=== PATIENT | female | born 1955 | race Asian ===

== ENCOUNTER 2017-04-01 15:49 | Inpatient (IN) | payer MEDICARE ==
[~2017-04-01 15:49] MED LIST: D50W (25GM) Syringe IV ONE
[2017-04-01] MEDS ORDERED: D50W (25GM) Syringe IV ONE ×2 (15:50→20:13)
[2017-04-01 17:02] LABS: Anion Gap 18 mmol/L; BUN/Creatinine Ratio 19; Blood Urea Nitrogen 13 mg/dL (7-17); Carbon Dioxide 26 mmol/L (22-30); Chloride 103.3 mmol/L (98-107); Glucose 107 mg/dL (65-100); Potassium 4.1 mmol/L (3.6-5.0); Sodium 143 mmol/L (137-145)
--- NOTE | 2017-04-01 17:08 | Emergency Department Report ---
HPI - General Chief Complaint: Altered Mental Status Time Seen by Provider: 04/01/17 16:44 - HPI HPI: Room 19 The patient is a 61-year-old female presenting with a chief complaint of altered mental status. Per EMS patient was sent from [facility] the right facial droop was noticed by staff. The patient had been given gabapentin, Cogentin, glipizide and Risperdal earlier this morning. Staff reported the patient appeared groggy when he attempted to awaken her the facial droop was noted and EMS was called. EMS found the patient hypoglycemic at 36 mg/dL subsequently administered one amp of D50 IV. The patient's blood sugar then increase to 186 mg/dL the patient's mental status did not improve. The patient is very sleepy/groggy during the interview and does not fully answer questions Location: Mental status Duration: [see above] Quality: [see above] Severity: [see above] Modifying factors: [see above] Context: [see above] Mode of transportation: [not driving] ED Past Medical Hx - Past Medical History Hx Diabetes: Yes Hx Psychiatric Treatment: Yes - Surgical History Past Surgical History?: No - Family History Family history: no significant - Social History Smoking Status: Unknown if ever smoked ED Review of Systems ROS: Stated complaint: AMS Other details as noted in HPI Comment: Unobtainable due to pts medical conditions Physical Exam - Physical Exam Vital Signs: Vital Signs 04/01/17 16:20 Temperature 97.5 F L Pulse Rate 86 Respiratory 22 Rate Blood Pressure 112/44 O2 Sat by Pulse 100 Oximetry Physical Exam: GENERAL: The patient is well-developed well-nourished []. [] HEENT: Normocephalic. Atraumatic. Extraocular motions are intact. Patient has moist mucous membranes. NECK: Supple. No meningitic signs are noted. There is no adenopathy noted. CHEST/LUNGS: Clear to auscultation. There is no respiratory distress noted. HEART/CARDIOVASCULAR: Regular. There is no tachycardia. There is no gallop rub or murmur. ABDOMEN: Abdomen is soft, nontender. Patient has normal bowel sounds. There is no abdominal distention. SKIN: There is no rash. There is no edema. There is no diaphoresis. NEURO: The patient is lethargic/groggy and awakens with tactile stimuli but promptly falls back asleep. The patient attempts to cooperate with neurological exam. There is no pronator drift. Bending Machine Operator equal bilaterally, extra ocular muscles intact patient moves both feet. The patient has no focal neurologic deficits. MUSCULOSKELETAL: There is no evidence of acute injury. ED Course Vital Signs 04/01/17 16:20 Temperature 97.5 F L Pulse Rate 86 Respiratory 22 Rate Blood Pressure 112/44 O2 Sat by Pulse 100 Oximetry ED Medical Decision Making - Lab Data Result diagrams: 04/01/17 16:25 04/01/17 16:25 Laboratory Tests 04/01/17 04/01/17 04/01/17 16:15 16:25 16:25 WBC 8.6 RBC 5.09 H Hgb 11.3 Hct 33.9 MCV 67 L MCH 22 L MCHC 33 RDW 16.1 H Plt Count 239 Add Manual Diff Complete Total Counted 100 Seg Neuts % (Manual) 65.0 Band Neutrophils % 0 Lymphocytes % (Manual) 27.0 Reactive Lymphs % (Man) 0 Monocytes % (Manual) 6.0 Eosinophils % (Manual) 2.0 Basophils % (Manual) 0 Metamyelocytes % 0 Myelocytes % 0 Promyelocytes % 0 Blast Cells % 0 Seg Neutrophils # Man 0.0 L Band Neutrophils # 0.0 Lymphocytes # (Manual) 0.0 L Abs React Lymphs (Man) 0.0 Monocytes # (Manual) 0.0 Eosinophils # (Manual) 0.0 Basophils # (Manual) 0.0 Metamyelocytes # 0.0 Myelocytes # 0.0 Promyelocytes # 0.0 Blast Cells # 0.0 Platelet Estimate Consistent w auto Microcytosis 1+ Target Cells 1+ Hem Pathologist Commnt No PT INR APTT Sodium 143 Potassium 4.1 Chloride 103.3 Carbon Dioxide 26 Anion Gap 18 BUN 13 Creatinine 0.7 Estimated GFR > 60 BUN/Creatinine Ratio 19 Glucose 107 H POC Glucose 186 H Calcium 9.0 Total Bilirubin Direct Bilirubin Indirect Bilirubin AST ALT Alkaline Phosphatase Ammonia Total Creatine Kinase CK-MB (CK-2) CK-MB (CK-2) Rel Index Troponin T Total Protein Albumin Albumin/Globulin Ratio Urine Color Urine Turbidity Urine pH Ur Specific [place] Urine Protein Urine Glucose (UA) Urine Ketones Urine Blood Urine Nitrite Urine Bilirubin Urine Urobilinogen Ur Leukocyte Esterase Urine WBC (Auto) Urine RBC (Auto) U Epithel Cells (Auto) Urine Bacteria (Auto) Urine Opiates Screen Urine Methadone Screen Ur Barbiturates Screen Ur Phencyclidine Scrn Ur Amphetamines Screen U Benzodiazepines Scrn Urine Cocaine Screen U Marijuana (THC) Screen Drugs of Abuse Note Plasma/Serum Alcohol 04/01/17 04/01/17 04/01/17 16:25 17:44 17:44 WBC RBC Hgb Hct MCV MCH MCHC RDW Plt Count Add Manual Diff Total Counted Seg Neuts % (Manual) Band Neutrophils % Lymphocytes % (Manual) Reactive Lymphs % (Man) Monocytes % (Manual) Eosinophils % (Manual) Basophils % (Manual) Metamyelocytes % Myelocytes % Promyelocytes % Blast Cells % Seg Neutrophils # Man Band Neutrophils # Lymphocytes # (Manual) Abs React Lymphs (Man) Monocytes # (Manual) Eosinophils # (Manual) Basophils # (Manual) Metamyelocytes # Myelocytes # Promyelocytes # Blast Cells # Platelet Estimate Microcytosis Target Cells Hem Pathologist Commnt PT INR APTT Sodium Potassium Chloride Carbon Dioxide Anion Gap BUN Creatinine Estimated GFR BUN/Creatinine Ratio Glucose POC Glucose Calcium Total Bilirubin 0.40 Direct Bilirubin < 0.2 Indirect Bilirubin 0.2 AST 20 ALT 14 Alkaline Phosphatase 55 Ammonia 20.0 L Total Creatine Kinase 54 CK-MB (CK-2) < 1.0 CK-MB (CK-2) Rel Index 1.8 Troponin T < 0.010 Total Protein 6.6 Albumin 4.0 Albumin/Globulin Ratio 1.5 Urine Color Urine Turbidity Urine pH Ur Specific [place] Urine Protein Urine Glucose (UA) Urine Ketones Urine Blood Urine Nitrite Urine Bilirubin Urine Urobilinogen Ur Leukocyte Esterase Urine WBC (Auto) Urine RBC (Auto) U Epithel Cells (Auto) Urine Bacteria (Auto) Urine Opiates Screen Urine Methadone Screen Ur Barbiturates Screen Ur Phencyclidine Scrn Ur Amphetamines Screen U Benzodiazepines Scrn Urine Cocaine Screen U Marijuana (THC) Screen Drugs of Abuse Note Plasma/Serum Alcohol < 0.01 04/01/17 04/01/17 04/01/17 17:57 Unknown Unknown WBC RBC Hgb Hct MCV MCH MCHC RDW Plt Count Add Manual Diff Total Counted Seg Neuts % (Manual) Band Neutrophils % Lymphocytes % (Manual) Reactive Lymphs % (Man) Monocytes % (Manual) Eosinophils % (Manual) Basophils % (Manual) Metamyelocytes % Myelocytes % Promyelocytes % Blast Cells % Seg Neutrophils # Man Band Neutrophils # Lymphocytes # (Manual) Abs React Lymphs (Man) Monocytes # (Manual) Eosinophils # (Manual) Basophils # (Manual) Metamyelocytes # Myelocytes # Promyelocytes # Blast Cells # Platelet Estimate Microcytosis Target Cells Hem Pathologist Commnt PT 13.3 INR 0.96 APTT 34.1 Sodium Potassium Chloride Carbon Dioxide Anion Gap BUN Creatinine Estimated GFR BUN/Creatinine Ratio Glucose POC Glucose Calcium Total Bilirubin Direct Bilirubin Indirect Bilirubin AST ALT Alkaline Phosphatase Ammonia Total Creatine Kinase CK-MB (CK-2) CK-MB (CK-2) Rel Index Troponin T Total Protein Albumin Albumin/Globulin Ratio Urine Color Yellow Urine Turbidity Clear Urine pH 6.0 Ur Specific [place] 1.007 Urine Protein <15 mg/dl Urine Glucose (UA) >=500 Urine Ketones Neg Urine Blood Neg Urine Nitrite Neg Urine Bilirubin Neg Urine Urobilinogen < 2.0 Ur Leukocyte Esterase Tr Urine WBC (Auto) 4.0 Urine RBC (Auto) 3.0 U Epithel Cells (Auto) < 1.0 Urine Bacteria (Auto) 1+ Urine Opiates Screen Presumptive negative Urine Methadone Screen Presumptive negative Ur Barbiturates Screen Presumptive negative Ur Phencyclidine Scrn Presumptive negative Ur Amphetamines Screen Presumptive negative U Benzodiazepines Scrn Presumptive negative Urine Cocaine Screen Presumptive negative U Marijuana (THC) Screen Presumptive negative Drugs of Abuse Note Disclamer Plasma/Serum Alcohol - Radiology Data Radiology results: report reviewed (CT head), image reviewed (CT head) CT head (read by radiologist) 6-atrophy ventricular prominence felt to be in proportion to the degree of atrophy. No CT evidence of acute cranial pathology. White matter changes likely related to chronic small vessel ischemic change. So centimeter areas of low attenuation in the basal ganglia felt to represent prominent perivascular spaces or lacunes - Differential Diagnosis ICH, overmedication, hepatic encephalopathy, Critical care attestation.: If time is entered above; I have spent that time in minutes in the direct care of this critically ill patient, excluding procedure time. ED Disposition Clinical Impression: Altered mental status Disposition: DC-[id number] OP ADMIT IP TO THIS HOSP Is pt being admited?: Yes Does the pt Need Aspirin: Yes Condition: Fair Referrals: PRIMARY CARE, [Primary Care Provider] - 3-5 Days Time of Disposition: 19:00 (hospitalist paged)
[2017-04-01 17:23] LABS: Urine Drugs of Abuse Note Disclamer
[2017-04-01 17:39] LABS: Bacteria,Urine 1+ /HPF (Negative); Bilirubin,Urine NEG (Negative); Blood,Urine NEG (Negative); Ketones,Urine NEG (Negative); Leukocyte Esterase,Urine TR (Negative); Nitrite,Urine NEG (Negative); Protein,Urine <15 mg/dL mg/dL (Negative); Urobilinogen,Urine < 2.0 mg/dL (<2.0)
[2017-04-01 17:53] LABS: Alanine Aminotransferase 14 units/L (7-56); Albumin/Globulin Ratio 1.5 %; Alkaline Phosphatase 55 units/L (35-129); Creatine Kinase 54 units/L (30-135); Total Protein 6.6 g/dL (6.3-8.2)
[2017-04-01 18:20] LABS: Bilirubin,Direct < 0.2 mg/dL (0-0.2); Bilirubin,Indirect 0.2 mg/dL
[2017-04-01 18:21] LABS: Creatine Kinase MB < 1.0 ng/mL (0.0-4.0)
[2017-04-01 18:34] LABS: INR 0.96 (0.87-1.13)
[2017-04-01 18:35] LABS: Partial Thromboplastin Time 34.1 Sec. (24.2-36.6)
--- NOTE | 2017-04-01 18:41 | Cat Scan Report ---
FINAL REPORT PROCEDURE: CT HEAD/BRAIN WO CON TECHNIQUE: Computerized tomography of the head was performed without contrast material. DLP 1792.70 mGy-cm. HISTORY: Altered mental status. COMPARISON: No prior studies are available for comparison. FINDINGS: Skull and scalp: Normal. Paranasal sinuses: Minimal left maxillary sinusitis. Ventricles and subarachnoid spaces: Ventricular prominence. Cerebrum: No evidence of hemorrhage, acute infarction or mass. Mild atrophy. Mild periventricular white matter low attenuation. Subcentimeter areas of low attenuation in the basal ganglia. Cerebellum and brainstem: No evidence of hemorrhage, acute infarction or mass. Vasculature: Mild atherosclerosis. Comments: None. IMPRESSION: Atrophy, ventricular prominence felt to be in proportion to the degree of atrophy. No CT evidence of acute intracranial pathology. White matter change likely related to chronic small vessel ischemic change. Subcentimeter areas of low attenuation in the basal ganglia felt to represent prominent perivascular spaces or lacunes. Consider MRI of the brain for further evaluation if there is continued clinical concern and if patient has no contraindication to MRI.
[2017-04-01 18:50] LABS: Basophils % (Manual) 0 % (0.0-1.8); Blastocytes % (Manual) 0 %
[2017-04-01 18:51] LABS: Microcytosis 1+; Platelet Estimate Consistent w Auto
[2017-04-01 18:52] LABS: Diff Status Complete; Target Cells 1+
[2017-04-01 18:56] LABS: Hematocrit 33.9 % (30.3-42.9); Hemoglobin 11.3 gm/dl (10.1-14.3); Mean Corpuscular Hemoglobin 22 pg (28-32); Mean Corpuscular Volume 67 fl (79-97); Red Blood Count 5.09 M/mm3 (3.65-5.03); White Blood Count 8.6 K/mm3 (4.5-11.0)
[2017-04-01 18:57] LABS: Mean Corpuscular HGB Conc 33 % (30-34); Platelet Count 239 K/mm3 (140-440); Red Cell Distribution Width 16.1 % (13.2-15.2)
[2017-04-01] MEDS ORDERED: ASPIRIN PR ONE ×2 (19:00→23:38)
[2017-04-01] MEDS ORDERED: ZOFRAN IV PRN (19:29)
[2017-04-01] MEDS ORDERED: SODIUM CHLORIDE FLUSH SYRINGE 10 ML IV PRN (19:29)
[2017-04-01] MEDS ORDERED: PHENERGAN PR PRN (19:29)
[2017-04-01] MEDS ORDERED: REGLAN PO PRN (19:29)
[2017-04-01] MEDS ORDERED: PROVENTIL IH PRN (19:29)
[2017-04-01] MEDS ORDERED: DULCOLAX PR PRN (19:29)
[2017-04-01] MEDS ORDERED: TYLENOL PO PRN (19:29)
[2017-04-01] MEDS ORDERED: MILK OF MAGNESIA PO PRN (19:29)
[2017-04-01] MEDS ORDERED: D5W (50 ML) IV ONE (20:10)
--- NOTE | 2017-04-01 20:12 | History and Physical Report ---
History of Present Illness Chief complaint: facial drooping, unresponsive History of present illness: 61 YO Female with DM, Psychosis admitted to [facility] under 1013 presents to ED for evaluation. Pt stuporous and unable to provide history due to mental status. Pt history taken from [facility] staff. As per staff, Patient was in her usual state of health today, and was given gabapentin, Cogentin, glipizide and Risperdal earlier this morning. Staff reports that the patient appeared groggy after getting her medication. Pt subsequently went to sleep and upon attempt to awaken her-the patient was found to have facial droop and slurred speech. EMS was notified and upon arrival patient was found to be hypoglycemic at 36 mg/dL. Pt was subsequently administered one amp of D50 with improvement in serum glucose to 186 mg/dL but without improvement in the patient's mental status. Pt seen and evaluated in ED and found to have right facial droop, and weakness. Past History Past Medical History: diabetes, other (Psychosis) Past Surgical History: No surgical history, Other (reviewed) Social history: single. denies: smoking, alcohol abuse, prescription drug abuse Family history: no significant family history (reviewed) Medications and Allergies Allergies Allergy/AdvReac Type Severity Reaction Status Date / Time No Known Allergies Allergy Verified 04/01/17 16:02 Active Meds: Active Medications Acetaminophen (Tylenol) 650 mg PO Q4H PRN PRN Reason: Pain, Mild (1-3) Albuterol (Proventil) 2.5 mg IH Q3HRT PRN PRN Reason: Shortness Of Breath Aspirin (Aspirin) 325 mg PO QDAY MERNA Bisacodyl (Dulcolax) 10 mg IA QDAY PRN PRN Reason: Constipation Magnesium Hydroxide (Milk Of Magnesia) 30 ml PO Q4H PRN PRN Reason: Constipation Metoclopramide HCl (Reglan) 10 mg PO Q6H PRN PRN Reason: Nausea And Vomiting Ondansetron HCl (Zofran) 4 mg IV Q8H PRN PRN Reason: N/V unrelieved by Reglan Promethazine HCl (Phenergan) 25 mg IA Q6H PRN PRN Reason: Nausea And Vomiting Simvastatin (Zocor) 20 mg PO QHS MERNA Sodium Chloride (Sodium Chloride Flush Syringe 10 Ml) 10 ml IV PRN PRN PRN Reason: LINE FLUSH Review of Systems ROS unobtainable: due to mental status Exam - Constitutional Vitals: Temp Pulse Resp BP Pulse Ox 97.5 F L 86 22 112/44 97 04/01/17 16:20 04/01/17 16:20 04/01/17 19:11 04/01/17 16:20 04/01/17 19:11 General appearance: Present: mild distress - EENT Eyes: Present: PERRL, scleral icterus - Neck Neck: Present: supple, normal ROM - Respiratory Respiratory: bilateral: diminished - Cardiovascular Heart Sounds: Present: S1 & S2. Absent: rub, click - Extremities Extremities: pulses symmetrical, No edema Peripheral Pulses: within normal limits - Abdominal General gastrointestinal: Present: soft, non-tender, non-distended, normal bowel sounds Female genitourinary: Present: normal - Integumentary Integumentary: Present: clear, warm, dry - Musculoskeletal Musculoskeletal: right sided weakness, generalized weakness - Psychiatric Psychiatric: no appropriate mood/affect, no intact judgment & insight, no memory intact - Neurologic Neurologic: no moves all extremities, no gait normal Results - Labs CBC & Chem 7: 04/01/17 16:25 04/01/17 16:25 Labs: Abnormal lab results 04/01/17 04/01/17 04/01/17 Range/Units 16:15 16:25 16:25 RBC 5.09 H (3.65-5.03) M/mm3 MCV 67 L (79-97) fl MCH 22 L (28-32) pg RDW 16.1 H (13.2-15.2) % Seg Neutrophils # Man 0.0 L (1.8-7.7) K/mm3 Lymphocytes # (Manual) 0.0 L (1.2-5.4) K/mm3 Glucose 107 H (65-100) mg/dL POC Glucose 186 H (70-105) Ammonia (25-60) umol/L 04/01/17 Range/Units 17:44 RBC (3.65-5.03) M/mm3 MCV (79-97) fl MCH (28-32) pg RDW (13.2-15.2) % Seg Neutrophils # Man (1.8-7.7) K/mm3 Lymphocytes # (Manual) (1.2-5.4) K/mm3 Glucose (65-100) mg/dL POC Glucose (70-105) Ammonia 20.0 L (25-60) umol/L Assessment and Plan - Patient Problems (1) CVA (cerebral vascular accident) Current Visit: Yes Status: Acute Qualifiers: CVA mechanism: C Precerebral and cerebral artery: P Laterality of affected vessel: L Plan to address problem: Stroke Protocol: CT Head, MRI/MRA Brain, PT/OT/ Speech Evaluation, antiplatelet therapy, Echo, Carotid doppler (2) Encephalopathy Current Visit: Yes Status: Acute Plan to address problem: CT Head, neuro checks, supportive care, aspiration precautions (3) Psychosis Current Visit: Yes Status: Acute Qualifiers: Psychosis type: P Schizoaffective disorder type: S Schizophrenia type: S Plan to address problem: [address], psych consulted. (4) Diabetes Current Visit: Yes Status: Acute Qualifiers: Diabetes mellitus type: D Diabetes mellitus complication status: D Diabetes mellitus complication detail: D Diabetic retinopathy severity: D Proliferative retinopathy type: P Diabetes mellitus macular edema: D Diabetes mellitus prison insulin use: D Laterality: L Chronic kidney disease stage: C Plan to address problem: ADA diet, insulin, accu check (5) DVT prophylaxis Current Visit: Yes Status: Acute
[2017-04-01] MEDS: ZOCOR PO SCH (23:38)
[2017-04-02] MEDS ORDERED: D5/0.45NS 1,000 ML IV ONE (01:02)
[2017-04-02] MEDS: D5/0.45NS 1,000 ML IV SCH ×2 (01:11→15:56)
[2017-04-02] MEDS ORDERED: D50W (25GM) Syringe IV ONE ×2 (01:36→01:51)
[2017-04-02] MEDS ORDERED: D50W (25GM) Vial IV ONE (09:31)
[2017-04-02] MEDS: ASPIRIN PO SCH (09:50)
--- NOTE | 2017-04-02 12:21 | Progress Note ---
Assessment and Plan Assessment and plan: Patient is 61-year-old woman from [facility] under 1013 with a past medical history of diabetes mellitus on glipizide, hypertension and mental disorder who presents with altered mental status and was found to have a blood glucose of 36. TTE read as left ventricular chamber size is normal, Global left ventricular wall motion and contractility are within normal limits. Global left ventricular systolic function is normal, est EF 55-60%, abnormal left ventricular diastolic filling, consistent with impair relaxation. CT head read as no acute intracranial pathology. -Altered mental status with acute metabolic encephalopathy due to hypoglycemia: Treat the hypoglycemia -Hypoglycemia on sulfa urea: Stop the glipizide, gave extra dose of dextrose, Accu-Chek stat, dextrose additive in IV fluids -Medical condition under 1013: Consult mental health -Uncontrolled type 2 diabetes mellitus with hypoglycemia: dextrose additive to ivf -History of hypertension but on hypotensive side mostly due to dehydration: Treat with IV fluids History Interval history: [place] intrepreter use via [employer] Patient was seen and examined. Follow-up on current diagnosis/ams which is still present. Overnight uneventful. Patient denies any chest pain, shortness breath, nausea/vomiting or severe headaches. Imaging, nursing note, chart, labs and old chart reviewed. Discussed with patient. Hospitalist Physical - Physical exam Narrative exam: GEN: thin, frial, NAD, AWAKE, ALERT, ORIENTATED x 2, missed year HEENT: NCAT, EOMI, PERRL, OP Clear NECK: supple, no adenopathy, no thyromegaly, no JVD CVS/HEART: RRR, NORMAL S1S2, NO JVD, pulses present bilaterally CHEST/LUNGS: CTA B, Symmetrical chest expansion, good air entry bilaterally GI/Abdomen: soft, NTND, good bowel sounds, no guarding or rebound /Bladder: no suprapubic tenderness, no CVA or paraspinal tenderness EXT/Skin: no c/c/e, no obvious rash MSK: spontaneous movement x 4 Neuro: CN 2-12 grossly intact, doesn't follow commands Psych: calm - Constitutional Vitals: Temp Pulse Resp BP Pulse Ox 97.5 F L 81 18 124/62 100 04/02/17 09:30 04/02/17 09:30 04/02/17 09:30 04/02/17 09:30 04/02/17 04:00 General appearance: Absent: mild distress Results - Labs CBC & Chem 7: 04/01/17 16:25 04/01/17 16:25 Labs: Laboratory Last Values WBC 8.6 K/mm3 (4.5-11.0) 04/01/17 16:25 RBC 5.09 M/mm3 (3.65-5.03) H 04/01/17 16:25 Hgb 11.3 gm/dl (10.1-14.3) 04/01/17 16:25 Hct 33.9 % (30.3-42.9) 04/01/17 16:25 MCV 67 fl (79-97) L 04/01/17 16:25 MCH 22 pg (28-32) L 04/01/17 16:25 MCHC 33 % (30-34) 04/01/17 16:25 RDW 16.1 % (13.2-15.2) H 04/01/17 16:25 Plt Count 239 K/mm3 (140-440) 04/01/17 16:25 Add Manual Diff Complete 04/01/17 16:25 Total Counted 100 04/01/17 16:25 Seg Neuts % (Manual) 65.0 % (40.0-70.0) 04/01/17 16:25 Band Neutrophils % 0 % 04/01/17 16:25 Lymphocytes % (Manual) 27.0 % (13.4-35.0) 04/01/17 16:25 Reactive Lymphs % (Man) 0 % 04/01/17 16:25 Monocytes % (Manual) 6.0 % (0.0-7.3) 04/01/17 16:25 Eosinophils % (Manual) 2.0 % (0.0-4.3) 04/01/17 16:25 Basophils % (Manual) 0 % (0.0-1.8) 04/01/17 16:25 Metamyelocytes % 0 % 04/01/17 16:25 Myelocytes % 0 % 04/01/17 16:25 Promyelocytes % 0 % 04/01/17 16:25 Blast Cells % 0 % 04/01/17 16:25 Seg Neutrophils # Man 0.0 K/mm3 (1.8-7.7) L 04/01/17 16:25 Band Neutrophils # 0.0 K/mm3 04/01/17 16:25 Lymphocytes # (Manual) 0.0 K/mm3 (1.2-5.4) L 04/01/17 16:25 Abs React Lymphs (Man) 0.0 K/mm3 04/01/17 16:25 Monocytes # (Manual) 0.0 K/mm3 (0.0-0.8) 04/01/17 16:25 Eosinophils # (Manual) 0.0 K/mm3 (0.0-0.4) 04/01/17 16:25 Basophils # (Manual) 0.0 K/mm3 (0.0-0.1) 04/01/17 16:25 Metamyelocytes # 0.0 K/mm3 04/01/17 16:25 Myelocytes # 0.0 K/mm3 04/01/17 16:25 Promyelocytes # 0.0 K/mm3 04/01/17 16:25 Blast Cells # 0.0 K/mm3 04/01/17 16:25 Platelet Estimate Consistent w auto 04/01/17 16:25 Microcytosis 1+ 04/01/17 16:25 Target Cells 1+ 04/01/17 16:25 Hem Pathologist Commnt No 04/01/17 16:25 PT 13.3 Sec. (12.2-14.9) 04/01/17 17:57 INR 0.96 (0.87-1.13) 04/01/17 17:57 APTT 34.1 Sec. (24.2-36.6) 04/01/17 17:57 Sodium 143 mmol/L (137-145) 04/01/17 16:25 Potassium 4.1 mmol/L (3.6-5.0) 04/01/17 16:25 Chloride 103.3 mmol/L (98-107) 04/01/17 16:25 Carbon Dioxide 26 mmol/L (22-30) 04/01/17 16:25 Anion Gap 18 mmol/L 04/01/17 16:25 BUN 13 mg/dL (7-17) 04/01/17 16:25 Creatinine 0.7 mg/dL (0.7-1.2) 04/01/17 16:25 Estimated GFR > 60 ml/min 04/01/17 16:25 BUN/Creatinine Ratio 19 % 04/01/17 16:25 Glucose 107 mg/dL (65-100) H 04/01/17 16:25 POC Glucose 66 (70-105) L 04/02/17 01:38 Calcium 9.0 mg/dL (8.4-10.2) 04/01/17 16:25 Total Bilirubin 0.40 mg/dL (0.1-1.2) 04/01/17 16:25 Direct Bilirubin < 0.2 mg/dL (0-0.2) 04/01/17 16:25 Indirect Bilirubin 0.2 mg/dL 04/01/17 16:25 AST 20 units/L (5-40) 04/01/17 16:25 ALT 14 units/L (7-56) 04/01/17 16:25 Alkaline Phosphatase 55 units/L (35-129) 04/01/17 16:25 Ammonia 20.0 umol/L (25-60) L 04/01/17 17:44 Total Creatine Kinase 54 units/L (30-135) 04/01/17 16:25 CK-MB (CK-2) < 1.0 ng/mL (0.0-4.0) 04/01/17 16:25 CK-MB (CK-2) Rel Index 1.8 (0-4) 04/01/17 16:25 Troponin T < 0.010 ng/mL (0.00-0.029) 04/01/17 16:25 Total Protein 6.6 g/dL (6.3-8.2) 04/01/17 16:25 Albumin 4.0 g/dL (3.9-5) 04/01/17 16:25 Albumin/Globulin Ratio 1.5 % 04/01/17 16:25 Triglycerides 102 mg/dL (2-149) 04/02/17 05:04 Cholesterol 132 mg/dL (50-199) 04/02/17 05:04 LDL Cholesterol Direct 60 mg/dL (50-130) 04/02/17 05:04 HDL Cholesterol 52 mg/dL (40-59) 04/02/17 05:04 Cholesterol/HDL Ratio 2.53 % 04/02/17 05:04 Urine Color Yellow (Yellow) 04/01/17 Unknown Urine Turbidity Clear (Clear) 04/01/17 Unknown Urine pH 6.0 (5.0-7.0) 04/01/17 Unknown Ur Specific [place] 1.007 (1.003-1.030) 04/01/17 Unknown Urine Protein <15 mg/dl mg/dL (Negative) 04/01/17 Unknown Urine Glucose (UA) >=500 mg/dL (Negative) 04/01/17 Unknown Urine Ketones Neg mg/dL (Negative) 04/01/17 Unknown Urine Blood Neg (Negative) 04/01/17 Unknown Urine Nitrite Neg (Negative) 04/01/17 Unknown Urine Bilirubin Neg (Negative) 04/01/17 Unknown Urine Urobilinogen < 2.0 mg/dL (<2.0) 04/01/17 Unknown Ur Leukocyte Esterase Tr (Negative) 04/01/17 Unknown Urine WBC (Auto) 4.0 /HPF (0.0-6.0) 04/01/17 Unknown Urine RBC (Auto) 3.0 /HPF (0.0-6.0) 04/01/17 Unknown U Epithel Cells (Auto) < 1.0 /HPF (0-13.0) 04/01/17 Unknown Urine Bacteria (Auto) 1+ /HPF (Negative) 04/01/17 Unknown Urine Opiates Screen Presumptive negative 04/01/17 Unknown Urine Methadone Screen Presumptive negative 04/01/17 Unknown Ur Barbiturates Screen Presumptive negative 04/01/17 Unknown Ur Phencyclidine Scrn Presumptive negative 04/01/17 Unknown Ur Amphetamines Screen Presumptive negative 04/01/17 Unknown U Benzodiazepines Scrn Presumptive negative 04/01/17 Unknown Urine Cocaine Screen Presumptive negative 04/01/17 Unknown U Marijuana (THC) Screen Presumptive negative 04/01/17 Unknown Drugs of Abuse Note Disclamer 04/01/17 Unknown Plasma/Serum Alcohol < 0.01 gm% (0-0.07) 04/01/17 17:44
--- NOTE | 2017-04-02 16:35 | Consultation ---
History of Present Illness - Reason for Consult Consult date: 04/02/17 Reason for consult: psychiatric consult - Chief Complaint Chief complaint: Language line used for language, [place]. She was unable to participate in the interview. She answered interview questions with one word. She was unable to contribute meaningful information to the interview. It is known she was at [place] and was determined to have facial droop and unresponsiveness. She was transferred to [facility] for medical evaluation and treatment. Hypoglycemia has been addressed and the record indicates she is undergoing a neurological work up. Medications and Allergies Allergies Allergy/AdvReac Type Severity Reaction Status Date / Time No Known Allergies Allergy Verified 04/01/17 16:02 Active Meds: Active Medications Acetaminophen (Tylenol) 650 mg PO Q4H PRN PRN Reason: Pain, Mild (1-3) Albuterol (Proventil) 2.5 mg IH Q3HRT PRN PRN Reason: Shortness Of Breath Aspirin (Aspirin) 325 mg PO QDAY [facility] Last Admin: 04/02/17 09:50 Dose: 325 mg Bisacodyl (Dulcolax) 10 mg NC QDAY PRN PRN Reason: Constipation Dextrose/Sodium Chloride (D5/0.45ns) 1,000 mls @ 75 mls/hr IV DIRECT [facility] Last Admin: 04/02/17 15:56 Dose: 75 mls/hr Magnesium Hydroxide (Milk Of Magnesia) 30 ml PO Q4H PRN PRN Reason: Constipation Metoclopramide HCl (Reglan) 10 mg PO Q6H PRN PRN Reason: Nausea And Vomiting Ondansetron HCl (Zofran) 4 mg IV Q8H PRN PRN Reason: N/V unrelieved by Reglan Promethazine HCl (Phenergan) 25 mg NC Q6H PRN PRN Reason: Nausea And Vomiting Simvastatin (Zocor) 20 mg PO QHS [facility] Last Admin: 04/01/17 23:38 Dose: Not Given Sodium Chloride (Sodium Chloride Flush Syringe 10 Ml) 10 ml IV PRN PRN PRN Reason: LINE FLUSH Past psychiatric history - Past Medical History Past Medical History: diabetes Mental Status Exam - Vital signs Last Vital Signs Temp 98.2 F 04/02/17 13:05 Pulse 73 04/02/17 13:05 Resp 18 04/02/17 13:05 BP 137/64 04/02/17 13:05 Pulse Ox 100 04/02/17 13:05 - Exam Narrative exam: unable to obtain mental status exam. Attempts were made to interview her in her [place] language of [place]. Orientation: person Results Result Diagrams: 04/01/17 16:25 04/01/17 16:25 Abnormal lab results 04/01/17 04/02/17 Range/Units 23:46 01:38 POC Glucose 66 L 66 L (70-105) All other labs normal. Assessment and Plan Assessment and plan: Impression: Encephalopathy Suicidality cannot be assessed at this time. Interview attempts were made with a [employer] historic interpreter via [employer]. The patient was attentive and held the phone but did not communicate effectively with the historic interpreter. She was observed to to be tremulous. Nurse informed. Recommendation: A reversable neurocognitive condition cannot be excluded. Continue to address potential neurological concerns per the medical team. Once medical conditions have resolved, we can evaluate for suicidal ideation or acute mental illness.
[2017-04-02] MEDS: ZOCOR PO SCH (21:55)
--- NOTE | 2017-04-02 22:52 | Magnetic Resonance Report ---
FINAL REPORT PROCEDURE: MR BRAIN WO CON TECHNIQUE: Magnetic resonance imaging of the brain was performed without contrast material. HISTORY: stroke COMPARISON: CT 04/01/2017 FINDINGS: Midline structures are unremarkable. No cerebellar tonsillar ectopia is noted. There is no restricted diffusion to suggest acute infarction. No abnormal extra-axial fluid collections are seen. There are diffuse involutional changes, with prominence of the ventricles and the sulci. No evidence of hydrocephalus. Minimal scattered white matter high T2 signal foci are present bilaterally, likely related to chronic microvascular ischemic changes. The globes and orbits are unremarkable. There is minimal left maxillary sinus mucosal thickening. IMPRESSION: No evidence of acute infarction. Minimal chronic ischemic changes.
--- NOTE | 2017-04-02 22:59 | Magnetic Resonance Report ---
FINAL REPORT PROCEDURE: MR MRA/MRV HEAD WO CON TECHNIQUE: Axial 3-D [id number] MR angiography of the [place] of [place] and brain was performed. The source images were reconstructed in various views using maximum intensity projection. HISTORY: Stroke symptoms COMPARISON: No prior studies are available for comparison. FINDINGS: Vertebral arteries: There is a dominant left vertebral artery. The distal right vertebral artery is small in caliber, likely a developmental variant. Basilar artery: Normal. Internal carotid arteries: Normal. Anterior cerebral arteries: Normal. Middle cerebral arteries: Normal. Posterior cerebral arteries: There appears to be a origin of the right posterior cerebral artery. Branch occlusions: None. Vascular malformations: None. IMPRESSION: No focal stenosis or occlusion identified
[2017-04-03] MEDS: D5/0.45NS 1,000 ML IV SCH (05:43)
[2017-04-03] MEDS: ASPIRIN PO SCH (10:05)
--- NOTE | 2017-04-03 14:24 | Progress Note ---
Assessment and Plan Assessment and plan: Patient is 61-year-old woman from [facility] under 1013 with a past medical history of diabetes mellitus on glipizide, hypertension and mental disorder who presents with altered mental status and was found to have a blood glucose of 36. TTE read as left ventricular chamber size is normal, Global left ventricular wall motion and contractility are within normal limits. Global left ventricular systolic function is normal, est EF 55-60%, abnormal left ventricular diastolic filling, consistent with impair relaxation. CT head read as no acute intracranial pathology. -Altered mental status with acute metabolic encephalopathy due to hypoglycemia: Treat the hypoglycemia -Hypoglycemia on sulfa urea: Stop the glipizide, gave extra dose of dextrose, Accu-Chek stat, dextrose additive in IV fluids -Medical condition under 1013: Consult mental health -Uncontrolled type 2 diabetes mellitus with hypoglycemia: dextrose additive to ivf -History of hypertension but on hypotensive side mostly due to dehydration: Treat with IV fluids D/c ivf with dextrose and monitor blood glucose today and if blood glucose says stable then d/c tomorrow back to [facility] History Interval history: [place] intrepreter use via [employer] used yesterday, not used today because she is not cooperative. Patient was seen and examined. Follow-up on current diagnosis/ams which is still present. Overnight uneventful. Imaging, nursing note, chart, labs and old chart reviewed. Discussed with patient. Sitter at bedside. She just mumbles Hospitalist Physical - Physical exam Narrative exam: GEN: thin, frial, NAD, AWAKE, ALERT, ORIENTATED x 2, missed year HEENT: NCAT, EOMI, PERRL, OP Clear NECK: supple, no adenopathy, no thyromegaly, no JVD CVS/HEART: RRR, NORMAL S1S2, NO JVD, pulses present bilaterally CHEST/LUNGS: CTA B, Symmetrical chest expansion, good air entry bilaterally GI/Abdomen: soft, NTND, good bowel sounds, no guarding or rebound /Bladder: no suprapubic tenderness, no CVA or paraspinal tenderness EXT/Skin: no c/c/e, no obvious rash MSK: spontaneous movement x 4 Neuro: CN 2-12 grossly intact, doesn't follow commands Psych: calm - Constitutional Vitals: Temp Pulse Resp BP Pulse Ox 99.2 F 74 20 115/66 100 10/16/17 12:01 04/03/17 12:01 04/03/17 12:01 04/03/17 12:01 04/03/17 12:01 General appearance: Absent: mild distress Results - Labs CBC & Chem 7: 04/01/17 16:25 04/01/17 16:25 Labs: Laboratory Last Values WBC 8.6 K/mm3 (4.5-11.0) 04/01/17 16:25 RBC 5.09 M/mm3 (3.65-5.03) H 04/01/17 16:25 Hgb 11.3 gm/dl (10.1-14.3) 04/01/17 16:25 Hct 33.9 % (30.3-42.9) 04/01/17 16:25 MCV 67 fl (79-97) L 04/01/17 16:25 MCH 22 pg (28-32) L 04/01/17 16:25 MCHC 33 % (30-34) 04/01/17 16:25 RDW 16.1 % (13.2-15.2) H 04/01/17 16:25 Plt Count 239 K/mm3 (140-440) 04/01/17 16:25 Add Manual Diff Complete 04/01/17 16:25 Total Counted 100 04/01/17 16:25 Seg Neuts % (Manual) 65.0 % (40.0-70.0) 04/01/17 16:25 Band Neutrophils % 0 % 04/01/17 16:25 Lymphocytes % (Manual) 27.0 % (13.4-35.0) 04/01/17 16:25 Reactive Lymphs % (Man) 0 % 04/01/17 16:25 Monocytes % (Manual) 6.0 % (0.0-7.3) 04/01/17 16:25 Eosinophils % (Manual) 2.0 % (0.0-4.3) 04/01/17 16:25 Basophils % (Manual) 0 % (0.0-1.8) 04/01/17 16:25 Metamyelocytes % 0 % 04/01/17 16:25 Myelocytes % 0 % 04/01/17 16:25 Promyelocytes % 0 % 04/01/17 16:25 Blast Cells % 0 % 04/01/17 16:25 Seg Neutrophils # Man 0.0 K/mm3 (1.8-7.7) L 04/01/17 16:25 Band Neutrophils # 0.0 K/mm3 04/01/17 16:25 Lymphocytes # (Manual) 0.0 K/mm3 (1.2-5.4) L 04/01/17 16:25 Abs React Lymphs (Man) 0.0 K/mm3 04/01/17 16:25 Monocytes # (Manual) 0.0 K/mm3 (0.0-0.8) 04/01/17 16:25 Eosinophils # (Manual) 0.0 K/mm3 (0.0-0.4) 04/01/17 16:25 Basophils # (Manual) 0.0 K/mm3 (0.0-0.1) 04/01/17 16:25 Metamyelocytes # 0.0 K/mm3 04/01/17 16:25 Myelocytes # 0.0 K/mm3 04/01/17 16:25 Promyelocytes # 0.0 K/mm3 04/01/17 16:25 Blast Cells # 0.0 K/mm3 04/01/17 16:25 Platelet Estimate Consistent w auto 04/01/17 16:25 Microcytosis 1+ 04/01/17 16:25 Target Cells 1+ 04/01/17 16:25 Hem Pathologist Commnt No 04/01/17 16:25 PT 13.3 Sec. (12.2-14.9) 04/01/17 17:57 INR 0.96 (0.87-1.13) 04/01/17 17:57 APTT 34.1 Sec. (24.2-36.6) 04/01/17 17:57 Sodium 143 mmol/L (137-145) 04/01/17 16:25 Potassium 4.1 mmol/L (3.6-5.0) 04/01/17 16:25 Chloride 103.3 mmol/L (98-107) 04/01/17 16:25 Carbon Dioxide 26 mmol/L (22-30) 04/01/17 16:25 Anion Gap 18 mmol/L 04/01/17 16:25 BUN 13 mg/dL (7-17) 04/01/17 16:25 Creatinine 0.7 mg/dL (0.7-1.2) 04/01/17 16:25 Estimated GFR > 60 ml/min 04/01/17 16:25 BUN/Creatinine Ratio 19 % 04/01/17 16:25 Glucose 107 mg/dL (65-100) H 04/01/17 16:25 POC Glucose 117 (70-105) H 04/03/17 12:00 Calcium 9.0 mg/dL (8.4-10.2) 04/01/17 16:25 Total Bilirubin 0.40 mg/dL (0.1-1.2) 04/01/17 16:25 Direct Bilirubin < 0.2 mg/dL (0-0.2) 04/01/17 16:25 Indirect Bilirubin 0.2 mg/dL 04/01/17 16:25 AST 20 units/L (5-40) 04/01/17 16:25 ALT 14 units/L (7-56) 04/01/17 16:25 Alkaline Phosphatase 55 units/L (35-129) 04/01/17 16:25 Ammonia 20.0 umol/L (25-60) L 04/01/17 17:44 Total Creatine Kinase 54 units/L (30-135) 04/01/17 16:25 CK-MB (CK-2) < 1.0 ng/mL (0.0-4.0) 04/01/17 16:25 CK-MB (CK-2) Rel Index 1.8 (0-4) 04/01/17 16:25 Troponin T < 0.010 ng/mL (0.00-0.029) 04/01/17 16:25 Total Protein 6.6 g/dL (6.3-8.2) 04/01/17 16:25 Albumin 4.0 g/dL (3.9-5) 04/01/17 16:25 Albumin/Globulin Ratio 1.5 % 04/01/17 16:25 Triglycerides 102 mg/dL (2-149) 04/02/17 05:04 Cholesterol 132 mg/dL (50-199) 04/02/17 05:04 LDL Cholesterol Direct 60 mg/dL (50-130) 04/02/17 05:04 HDL Cholesterol 52 mg/dL (40-59) 04/02/17 05:04 Cholesterol/HDL Ratio 2.53 % 04/02/17 05:04 Urine Color Yellow (Yellow) 04/01/17 Unknown Urine Turbidity Clear (Clear) 04/01/17 Unknown Urine pH 6.0 (5.0-7.0) 04/01/17 Unknown Ur Specific [place] 1.007 (1.003-1.030) 04/01/17 Unknown Urine Protein <15 mg/dl mg/dL (Negative) 04/01/17 Unknown Urine Glucose (UA) >=500 mg/dL (Negative) 04/01/17 Unknown Urine Ketones Neg mg/dL (Negative) 04/01/17 Unknown Urine Blood Neg (Negative) 04/01/17 Unknown Urine Nitrite Neg (Negative) 04/01/17 Unknown Urine Bilirubin Neg (Negative) 04/01/17 Unknown Urine Urobilinogen < 2.0 mg/dL (<2.0) 04/01/17 Unknown Ur Leukocyte Esterase Tr (Negative) 04/01/17 Unknown Urine WBC (Auto) 4.0 /HPF (0.0-6.0) 04/01/17 Unknown Urine RBC (Auto) 3.0 /HPF (0.0-6.0) 04/01/17 Unknown U Epithel Cells (Auto) < 1.0 /HPF (0-13.0) 04/01/17 Unknown Urine Bacteria (Auto) 1+ /HPF (Negative) 04/01/17 Unknown Urine Opiates Screen Presumptive negative 04/01/17 Unknown Urine Methadone Screen Presumptive negative 04/01/17 Unknown Ur Barbiturates Screen Presumptive negative 04/01/17 Unknown Ur Phencyclidine Scrn Presumptive negative 04/01/17 Unknown Ur Amphetamines Screen Presumptive negative 04/01/17 Unknown U Benzodiazepines Scrn Presumptive negative 04/01/17 Unknown Urine Cocaine Screen Presumptive negative 04/01/17 Unknown U Marijuana (THC) Screen Presumptive negative 04/01/17 Unknown Drugs of Abuse Note Disclamer 04/01/17 Unknown Plasma/Serum Alcohol < 0.01 gm% (0-0.07) 04/01/17 17:44
[2017-04-03] MEDS: ZOCOR PO SCH (21:18)
[2017-04-04] MEDS: ASPIRIN PO SCH (09:21)
--- NOTE | 2017-04-04 14:40 | Progress Note ---
Subjective - Reason for Consult Consult date: 04/04/17 Reason for consult: Psychiatry Follow-up - Chief Complaint Chief complaint: "Hello" The patient is a 61-year-old female presenting with a chief complaint of altered mental status. Per EMS patient was sent from [place] because of right facial drooping. Today patient was calm and cooperative during the assessment. Filling Hand line was used ([id number]). When asked about being suicidal, she stated , "Yes, I don't want to live anymore." Patient does not have a suicide plan. She would not confirm or deny depression when asked. Per the staff, patient completes her ADLs and eat 100% of her meals. She denies HI's and AVH's. Mental Status Exam - Vital signs Last Vital Signs Temp 97.9 F 04/04/17 11:49 Pulse 71 04/04/17 11:49 Resp 18 04/04/17 11:49 BP 124/74 04/04/17 11:49 Pulse Ox 98 04/04/17 11:49 - Exam Narrative exam: MSE: Appearance: calm, cooperative Behavior: regular eye contact Speech: regular rate and tone Mood: "okay" Affect: flat Thought Process: circumstantial Thought Content: denies HI's and AVH's Motor Activity: ambulatory Cognition: A/O x3 Insight: variable Judgment: variable Assessment and Plan Impression: Medical: Encephalopathy. Historical Dx: Possibly Schizophrenia. Today patient was calm and cooperative during the assessment. Filling Hand line was used ([id number]). Patient endorses SI's without a plan. Recommendation/Plan: Continue 1013. Patient can return back to [place] once medically clear. Gather more collateral to determine the indication for Clozaril.
--- NOTE | 2017-04-04 21:27 | Progress Note ---
Assessment and Plan Assessment and plan: 61 yo female with psychiatric disorder, brought from [facility] under 1013, with DM and HPL, who developed change in mental status and found to be hypoglycemic with a blood sugar of 36 1. Acute metabolic encephalopathy Secondary to hypoglycemia which now has resolved Other etiologies ruled out - infection, uremia, hepatic cephalopathy, drug use Mental status improving, likely back to baseline now 2. Diabetes with hypoglycemia Was on linagliptin/metformin at home; now discontinued Received D5W initially Now on regular po intake, no ivf BS in 100s; monitor closely for another 24 hours 3. Hyperlipidemia Continue statin 4. Psychiatric disorder Admitted at [facility] On 1013 Psychiatry following Plan to return there 5. DVT prophylaxis History Interval history: no issues overnight, calm this morning, cooperative, answering simple question Hospitalist Physical - Constitutional Vitals: Temp Pulse Resp BP Pulse Ox 97.9 F 71 16 119/68 99 04/04/17 20:02 04/04/17 19:59 04/04/17 20:02 04/04/17 19:59 04/04/17 19:59 General appearance: Present: no acute distress - EENT Eyes: Present: PERRL, EOM intact. Absent: scleral icterus, conjunctival injection - Neck Neck: Present: supple, normal ROM. Absent: masses or JVD - Respiratory Respiratory effort: normal Respiratory: bilateral: CTA, negative: rhonchi, wheezing - Cardiovascular Rhythm: regular Heart Sounds: Present: S1 & S2. Absent: systolic murmur - Extremities Extremities: no ischemia - Abdominal General gastrointestinal: soft, non-tender, non-distended, normal bowel sounds - Integumentary Integumentary: Present: warm, dry. Absent: jaundice, rash - Psychiatric Psychiatric: cooperative - Neurologic Neurologic: CNII-XII intact, no focal deficits Results - Labs CBC & Chem 7: 04/01/17 16:25 04/01/17 16:25 Labs: Laboratory Last Values WBC 8.6 K/mm3 (4.5-11.0) 04/01/17 16:25 RBC 5.09 M/mm3 (3.65-5.03) H 04/01/17 16:25 Hgb 11.3 gm/dl (10.1-14.3) 04/01/17 16:25 Hct 33.9 % (30.3-42.9) 04/01/17 16:25 MCV 67 fl (79-97) L 04/01/17 16:25 MCH 22 pg (28-32) L 04/01/17 16:25 MCHC 33 % (30-34) 04/01/17 16:25 RDW 16.1 % (13.2-15.2) H 04/01/17 16:25 Plt Count 239 K/mm3 (140-440) 04/01/17 16:25 Add Manual Diff Complete 04/01/17 16:25 Total Counted 100 04/01/17 16:25 Seg Neuts % (Manual) 65.0 % (40.0-70.0) 04/01/17 16:25 Band Neutrophils % 0 % 04/01/17 16:25 Lymphocytes % (Manual) 27.0 % (13.4-35.0) 04/01/17 16:25 Reactive Lymphs % (Man) 0 % 04/01/17 16:25 Monocytes % (Manual) 6.0 % (0.0-7.3) 04/01/17 16:25 Eosinophils % (Manual) 2.0 % (0.0-4.3) 04/01/17 16:25 Basophils % (Manual) 0 % (0.0-1.8) 04/01/17 16:25 Metamyelocytes % 0 % 04/01/17 16:25 Myelocytes % 0 % 04/01/17 16:25 Promyelocytes % 0 % 04/01/17 16:25 Blast Cells % 0 % 04/01/17 16:25 Seg Neutrophils # Man 0.0 K/mm3 (1.8-7.7) L 04/01/17 16:25 Band Neutrophils # 0.0 K/mm3 04/01/17 16:25 Lymphocytes # (Manual) 0.0 K/mm3 (1.2-5.4) L 04/01/17 16:25 Abs React Lymphs (Man) 0.0 K/mm3 04/01/17 16:25 Monocytes # (Manual) 0.0 K/mm3 (0.0-0.8) 04/01/17 16:25 Eosinophils # (Manual) 0.0 K/mm3 (0.0-0.4) 04/01/17 16:25 Basophils # (Manual) 0.0 K/mm3 (0.0-0.1) 04/01/17 16:25 Metamyelocytes # 0.0 K/mm3 04/01/17 16:25 Myelocytes # 0.0 K/mm3 04/01/17 16:25 Promyelocytes # 0.0 K/mm3 04/01/17 16:25 Blast Cells # 0.0 K/mm3 04/01/17 16:25 Platelet Estimate Consistent w auto 04/01/17 16:25 Microcytosis 1+ 04/01/17 16:25 Target Cells 1+ 04/01/17 16:25 Hem Pathologist Commnt No 04/01/17 16:25 PT 13.3 Sec. (12.2-14.9) 04/01/17 17:57 INR 0.96 (0.87-1.13) 04/01/17 17:57 APTT 34.1 Sec. (24.2-36.6) 04/01/17 17:57 Sodium 143 mmol/L (137-145) 04/01/17 16:25 Potassium 4.1 mmol/L (3.6-5.0) 04/01/17 16:25 Chloride 103.3 mmol/L (98-107) 04/01/17 16:25 Carbon Dioxide 26 mmol/L (22-30) 04/01/17 16:25 Anion Gap 18 mmol/L 04/01/17 16:25 BUN 13 mg/dL (7-17) 04/01/17 16:25 Creatinine 0.7 mg/dL (0.7-1.2) 04/01/17 16:25 Estimated GFR > 60 ml/min 04/01/17 16:25 BUN/Creatinine Ratio 19 % 04/01/17 16:25 Glucose 107 mg/dL (65-100) H 04/01/17 16:25 POC Glucose 104 (70-105) 04/04/17 16:13 Calcium 9.0 mg/dL (8.4-10.2) 04/01/17 16:25 Total Bilirubin 0.40 mg/dL (0.1-1.2) 04/01/17 16:25 Direct Bilirubin < 0.2 mg/dL (0-0.2) 04/01/17 16:25 Indirect Bilirubin 0.2 mg/dL 04/01/17 16:25 AST 20 units/L (5-40) 04/01/17 16:25 ALT 14 units/L (7-56) 04/01/17 16:25 Alkaline Phosphatase 55 units/L (35-129) 04/01/17 16:25 Ammonia 20.0 umol/L (25-60) L 04/01/17 17:44 Total Creatine Kinase 54 units/L (30-135) 04/01/17 16:25 CK-MB (CK-2) < 1.0 ng/mL (0.0-4.0) 04/01/17 16:25 CK-MB (CK-2) Rel Index 1.8 (0-4) 04/01/17 16:25 Troponin T < 0.010 ng/mL (0.00-0.029) 04/01/17 16:25 Total Protein 6.6 g/dL (6.3-8.2) 04/01/17 16:25 Albumin 4.0 g/dL (3.9-5) 04/01/17 16:25 Albumin/Globulin Ratio 1.5 % 04/01/17 16:25 Triglycerides 102 mg/dL (2-149) 04/02/17 05:04 Cholesterol 132 mg/dL (50-199) 04/02/17 05:04 LDL Cholesterol Direct 60 mg/dL (50-130) 04/02/17 05:04 HDL Cholesterol 52 mg/dL (40-59) 04/02/17 05:04 Cholesterol/HDL Ratio 2.53 % 04/02/17 05:04 Urine Color Yellow (Yellow) 04/01/17 Unknown Urine Turbidity Clear (Clear) 04/01/17 Unknown Urine pH 6.0 (5.0-7.0) 04/01/17 Unknown Ur Specific [place] 1.007 (1.003-1.030) 04/01/17 Unknown Urine Protein <15 mg/dl mg/dL (Negative) 04/01/17 Unknown Urine Glucose (UA) >=500 mg/dL (Negative) 04/01/17 Unknown Urine Ketones Neg mg/dL (Negative) 04/01/17 Unknown Urine Blood Neg (Negative) 04/01/17 Unknown Urine Nitrite Neg (Negative) 04/01/17 Unknown Urine Bilirubin Neg (Negative) 04/01/17 Unknown Urine Urobilinogen < 2.0 mg/dL (<2.0) 04/01/17 Unknown Ur Leukocyte Esterase Tr (Negative) 04/01/17 Unknown Urine WBC (Auto) 4.0 /HPF (0.0-6.0) 04/01/17 Unknown Urine RBC (Auto) 3.0 /HPF (0.0-6.0) 04/01/17 Unknown U Epithel Cells (Auto) < 1.0 /HPF (0-13.0) 04/01/17 Unknown Urine Bacteria (Auto) 1+ /HPF (Negative) 04/01/17 Unknown Urine Opiates Screen Presumptive negative 04/01/17 Unknown Urine Methadone Screen Presumptive negative 04/01/17 Unknown Ur Barbiturates Screen Presumptive negative 04/01/17 Unknown Ur Phencyclidine Scrn Presumptive negative 04/01/17 Unknown Ur Amphetamines Screen Presumptive negative 04/01/17 Unknown U Benzodiazepines Scrn Presumptive negative 04/01/17 Unknown Urine Cocaine Screen Presumptive negative 04/01/17 Unknown U Marijuana (THC) Screen Presumptive negative 04/01/17 Unknown Drugs of Abuse Note Disclamer 04/01/17 Unknown Plasma/Serum Alcohol < 0.01 gm% (0-0.07) 04/01/17 17:44
[2017-04-04] MEDS: ZOCOR PO SCH (21:39)
[2017-04-05] MEDS: ASPIRIN PO SCH (10:00)
--- NOTE | 2017-04-05 11:30 | Progress Note ---
Assessment and Plan Assessment and plan: 61 yo female with psychiatric disorder, brought from [facility] under 1013, with DM and HPL, who developed change in mental status and found to be hypoglycemic with a blood sugar of 36 1. Acute metabolic encephalopathy Secondary to hypoglycemia which now has resolved Other etiologies ruled out - infection, uremia, hepatic cephalopathy, drug use Mental status improving, likely back to baseline now 2. Diabetes with hypoglycemia Was on linagliptin/metformin at home; now discontinued Received D5W initially Now on regular po intake, no ivf BS consistently in 100-150s 3. Hyperlipidemia Continue statin 4. Psychiatric disorder Admitted at [facility] On 101 Psychiatry following Plan to return there 5. DVT prophylaxis 6. Dispo Medically cleared to return to psychiatric facility; oral antidiabetic medication discontinued History Interval history: doing well, no issues Hospitalist Physical - Constitutional Vitals: Temp Pulse Resp BP Pulse Ox 98.4 F 79 20 145/85 99 04/05/17 08:54 04/05/17 08:54 04/05/17 08:54 04/05/17 08:54 04/05/17 08:54 General appearance: Present: no acute distress - EENT Eyes: Present: PERRL, EOM intact - Neck Neck: Present: supple, normal ROM. Absent: masses or JVD - Respiratory Respiratory effort: normal Respiratory: bilateral: CTA, negative: rhonchi, wheezing - Cardiovascular Rhythm: regular Heart Sounds: Present: S1 & S2. Absent: systolic murmur - Extremities Extremities: no ischemia - Abdominal General gastrointestinal: soft, non-tender, non-distended, normal bowel sounds - Neurologic Neurologic: CNII-XII intact, no focal deficits Results - Labs CBC & Chem 7: 04/01/17 16:25 04/01/17 16:25 Labs: Laboratory Last Values WBC 8.6 K/mm3 (4.5-11.0) 04/01/17 16:25 RBC 5.09 M/mm3 (3.65-5.03) H 04/01/17 16:25 Hgb 11.3 gm/dl (10.1-14.3) 04/01/17 16:25 Hct 33.9 % (30.3-42.9) 04/01/17 16:25 MCV 67 fl (79-97) L 04/01/17 16:25 MCH 22 pg (28-32) L 04/01/17 16:25 MCHC 33 % (30-34) 04/01/17 16:25 RDW 16.1 % (13.2-15.2) H 04/01/17 16:25 Plt Count 239 K/mm3 (140-440) 04/01/17 16:25 Add Manual Diff Complete 04/01/17 16:25 Total Counted 100 04/01/17 16:25 Seg Neuts % (Manual) 65.0 % (40.0-70.0) 04/01/17 16:25 Band Neutrophils % 0 % 04/01/17 16:25 Lymphocytes % (Manual) 27.0 % (13.4-35.0) 04/01/17 16:25 Reactive Lymphs % (Man) 0 % 04/01/17 16:25 Monocytes % (Manual) 6.0 % (0.0-7.3) 04/01/17 16:25 Eosinophils % (Manual) 2.0 % (0.0-4.3) 04/01/17 16:25 Basophils % (Manual) 0 % (0.0-1.8) 04/01/17 16:25 Metamyelocytes % 0 % 04/01/17 16:25 Myelocytes % 0 % 04/01/17 16:25 Promyelocytes % 0 % 04/01/17 16:25 Blast Cells % 0 % 04/01/17 16:25 Seg Neutrophils # Man 0.0 K/mm3 (1.8-7.7) L 04/01/17 16:25 Band Neutrophils # 0.0 K/mm3 04/01/17 16:25 Lymphocytes # (Manual) 0.0 K/mm3 (1.2-5.4) L 04/01/17 16:25 Abs React Lymphs (Man) 0.0 K/mm3 04/01/17 16:25 Monocytes # (Manual) 0.0 K/mm3 (0.0-0.8) 04/01/17 16:25 Eosinophils # (Manual) 0.0 K/mm3 (0.0-0.4) 04/01/17 16:25 Basophils # (Manual) 0.0 K/mm3 (0.0-0.1) 04/01/17 16:25 Metamyelocytes # 0.0 K/mm3 04/01/17 16:25 Myelocytes # 0.0 K/mm3 04/01/17 16:25 Promyelocytes # 0.0 K/mm3 04/01/17 16:25 Blast Cells # 0.0 K/mm3 04/01/17 16:25 Platelet Estimate Consistent w auto 04/01/17 16:25 Microcytosis 1+ 04/01/17 16:25 Target Cells 1+ 04/01/17 16:25 Hem Pathologist Commnt No 04/01/17 16:25 PT 13.3 Sec. (12.2-14.9) 04/01/17 17:57 INR 0.96 (0.87-1.13) 04/01/17 17:57 APTT 34.1 Sec. (24.2-36.6) 04/01/17 17:57 Sodium 143 mmol/L (137-145) 04/01/17 16:25 Potassium 4.1 mmol/L (3.6-5.0) 04/01/17 16:25 Chloride 103.3 mmol/L (98-107) 04/01/17 16:25 Carbon Dioxide 26 mmol/L (22-30) 04/01/17 16:25 Anion Gap 18 mmol/L 04/01/17 16:25 BUN 13 mg/dL (7-17) 04/01/17 16:25 Creatinine 0.7 mg/dL (0.7-1.2) 04/01/17 16:25 Estimated GFR > 60 ml/min 04/01/17 16:25 BUN/Creatinine Ratio 19 % 04/01/17 16:25 Glucose 107 mg/dL (65-100) H 04/01/17 16:25 POC Glucose 117 (70-105) H 04/04/17 21:54 Calcium 9.0 mg/dL (8.4-10.2) 04/01/17 16:25 Total Bilirubin 0.40 mg/dL (0.1-1.2) 04/01/17 16:25 Direct Bilirubin < 0.2 mg/dL (0-0.2) 04/01/17 16:25 Indirect Bilirubin 0.2 mg/dL 04/01/17 16:25 AST 20 units/L (5-40) 04/01/17 16:25 ALT 14 units/L (7-56) 04/01/17 16:25 Alkaline Phosphatase 55 units/L (35-129) 04/01/17 16:25 Ammonia 20.0 umol/L (25-60) L 04/01/17 17:44 Total Creatine Kinase 54 units/L (30-135) 04/01/17 16:25 CK-MB (CK-2) < 1.0 ng/mL (0.0-4.0) 04/01/17 16:25 CK-MB (CK-2) Rel Index 1.8 (0-4) 04/01/17 16:25 Troponin T < 0.010 ng/mL (0.00-0.029) 04/01/17 16:25 Total Protein 6.6 g/dL (6.3-8.2) 04/01/17 16:25 Albumin 4.0 g/dL (3.9-5) 04/01/17 16:25 Albumin/Globulin Ratio 1.5 % 04/01/17 16:25 Triglycerides 102 mg/dL (2-149) 04/02/17 05:04 Cholesterol 132 mg/dL (50-199) 04/02/17 05:04 LDL Cholesterol Direct 60 mg/dL (50-130) 04/02/17 05:04 HDL Cholesterol 52 mg/dL (40-59) 04/02/17 05:04 Cholesterol/HDL Ratio 2.53 % 04/02/17 05:04 Urine Color Yellow (Yellow) 04/01/17 Unknown Urine Turbidity Clear (Clear) 04/01/17 Unknown Urine pH 6.0 (5.0-7.0) 04/01/17 Unknown Ur Specific [place] 1.007 (1.003-1.030) 04/01/17 Unknown Urine Protein <15 mg/dl mg/dL (Negative) 04/01/17 Unknown Urine Glucose (UA) >=500 mg/dL (Negative) 04/01/17 Unknown Urine Ketones Neg mg/dL (Negative) 04/01/17 Unknown Urine Blood Neg (Negative) 04/01/17 Unknown Urine Nitrite Neg (Negative) 04/01/17 Unknown Urine Bilirubin Neg (Negative) 04/01/17 Unknown Urine Urobilinogen < 2.0 mg/dL (<2.0) 04/01/17 Unknown Ur Leukocyte Esterase Tr (Negative) 04/01/17 Unknown Urine WBC (Auto) 4.0 /HPF (0.0-6.0) 04/01/17 Unknown Urine RBC (Auto) 3.0 /HPF (0.0-6.0) 04/01/17 Unknown U Epithel Cells (Auto) < 1.0 /HPF (0-13.0) 04/01/17 Unknown Urine Bacteria (Auto) 1+ /HPF (Negative) 04/01/17 Unknown Urine Opiates Screen Presumptive negative 04/01/17 Unknown Urine Methadone Screen Presumptive negative 04/01/17 Unknown Ur Barbiturates Screen Presumptive negative 04/01/17 Unknown Ur Phencyclidine Scrn Presumptive negative 04/01/17 Unknown Ur Amphetamines Screen Presumptive negative 04/01/17 Unknown U Benzodiazepines Scrn Presumptive negative 04/01/17 Unknown Urine Cocaine Screen Presumptive negative 04/01/17 Unknown U Marijuana (THC) Screen Presumptive negative 04/01/17 Unknown Drugs of Abuse Note Disclamer 04/01/17 Unknown Plasma/Serum Alcohol < 0.01 gm% (0-0.07) 04/01/17 17:44
--- NOTE | 2017-04-05 13:22 | Progress Note ---
Subjective - Reason for Consult Reason for consult: AMS - Chief Complaint Chief complaint: . Mental Status Exam - Vital signs Last Vital Signs Temp 98.9 F 04/05/17 12:17 Pulse 70 04/05/17 12:17 Resp 20 04/05/17 12:17 BP 133/69 04/05/17 12:17 Pulse Ox 100 04/05/17 12:17 Assessment and Plan I attempted to interview the patient today, but the interview was limited due to the language line being unavailable. Per review of medical record, patient had hypoglycemia which led to the altered mental status, it appears that this is now resolved. At the current time, I will inform the case management rn to refer her to [facility] that the patient's altered mental status has resolved.
[2017-04-05] MEDS: ZOCOR PO SCH (21:19)
--- NOTE | 2017-04-06 09:18 | Discharge Summary ---
Providers - Providers Date of Admission: 04/01/17 19:29 Date of discharge: 04/06/17 Attending physician: DOMINIQUE CHANG Consults: Psychiatry Primary care physician: CLAUDIA MORILLO MD Hospitalization Reason for admission: change in mental status Condition: Stable Pertinent studies: CT head Brain MRI/A Carotid Doppler Hospital course: 61 yo female with psychiatric disorder, brought from [facility] under 1013, with diabetes and hyperlipidemia, who developed change in mental status and found to be hypoglycemic with a blood sugar of 36. Received D5 water initially, then discontinued, transitioned to a regular diet and blood sugars have been within normal limits. Her oral antidiabetic, linagliptin/ metformin, has been discontinued as BS in low 100s on no medication. Other etiologies of acute encephalopathy ruled out (infection, uremia, hepatic encephalopathy). She is medically cleared to be transferred back to psychiatric facility. Discharge diagnoses: 1. Acute metabolic encephalopathy- resolved 2. Diabetes with hypoglycemia 3. Hyperlipidemia 4. Psychiatric disorder - on 1013 5. Dispo Return to psychiatric facility Disposition: [id number]/[id number] PSY HOSP/PSY UNIT Time spent for discharge: 35 min Core Measure Documentation - Palliative Care Palliative Care/ Comfort Measures: Not Applicable - Core Measures Any of the following diagnoses?: none Exam - Physical Exam Narrative exam: Seen and examined: - Constitutional Vitals: Temp Pulse Resp BP Pulse Ox 98.3 F 70 18 114/66 99 04/06/17 08:08 04/06/17 08:08 04/06/17 08:08 04/06/17 08:08 04/06/17 08:08 General appearance: Present: no acute distress - EENT Eyes: Present: PERRL, EOM intact - Neck Neck: Present: supple, normal ROM. Absent: masses or JVD - Respiratory Respiratory effort: normal Respiratory: bilateral: CTA, negative: rhonchi, wheezing - Cardiovascular Rhythm: regular Heart Sounds: Present: S1 & S2. Absent: systolic murmur - Extremities Extremities: no ischemia - Abdominal General gastrointestinal: Present: soft, non-tender, non-distended, normal bowel sounds - Psychiatric Psychiatric: other (calm) - Neurologic Neurologic: no focal deficits Plan Activity: advance as tolerated, fall precautions Diet: low cholesterol, low salt, diabetic Additional Instructions: Return to psychiatric facility under psychiatrist care Follow up with: PRIMARY CAREMD [Primary Care Provider] - 3-5 Days
[2017-04-06] MEDS: ASPIRIN PO SCH (10:37)
[2017-04-06] MEDS: ZOCOR PO SCH (21:26)
[2017-04-07] MEDS: ASPIRIN PO SCH (09:20)
--- NOTE | 2017-04-07 19:28 | Progress Note ---
Assessment and Plan Assessment and plan: 61 yo female with psychiatric disorder, brought from [facility] under 1013, with DM and HPL, who developed change in mental status and found to be hypoglycemic with a blood sugar of 36 1. Acute metabolic encephalopathy Secondary to hypoglycemia which now has resolved Other etiologies ruled out - infection, uremia, hepatic cephalopathy, drug use Mental status improved, likely back to baseline now 2. Diabetes with hypoglycemia Was on linagliptin/metformin at home; now discontinued Received D5W initially Now on regular po intake, no ivf BS consistently in 100-150s 3. Hyperlipidemia Continue statin 4. Psychiatric disorder Admitted at [facility] On 101 Psychiatry following Plan to return there 5. DVT prophylaxis 6. Dispo Medically cleared to return to psychiatric facility; oral antidiabetic medication discontinued History Interval history: doing well, no issues, awaiting transfer to inpatient psych Hospitalist Physical - Constitutional Vitals: Temp Pulse Resp BP Pulse Ox 98.1 F 75 18 110/61 97 04/07/17 16:45 04/07/17 16:45 04/07/17 16:45 04/07/17 16:45 04/07/17 08:02 General appearance: Present: no acute distress - EENT Eyes: Present: PERRL, EOM intact - Neck Neck: Present: supple, normal ROM. Absent: masses or JVD - Respiratory Respiratory effort: normal Respiratory: bilateral: CTA, negative: rhonchi, wheezing - Cardiovascular Rhythm: regular Heart Sounds: Present: S1 & S2. Absent: systolic murmur - Extremities Extremities: no ischemia - Abdominal General gastrointestinal: soft, non-tender, non-distended, normal bowel sounds - Psychiatric Psychiatric: no intact judgment & insight, no memory intact - Neurologic Neurologic: CNII-XII intact, no focal deficits Results - Labs CBC & Chem 7: 04/01/17 16:25 04/01/17 16:25 Labs: Laboratory Last Values WBC 8.6 K/mm3 (4.5-11.0) 04/01/17 16:25 RBC 5.09 M/mm3 (3.65-5.03) H 04/01/17 16:25 Hgb 11.3 gm/dl (10.1-14.3) 04/01/17 16:25 Hct 33.9 % (30.3-42.9) 04/01/17 16:25 MCV 67 fl (79-97) L 04/01/17 16:25 MCH 22 pg (28-32) L 04/01/17 16:25 MCHC 33 % (30-34) 04/01/17 16:25 RDW 16.1 % (13.2-15.2) H 04/01/17 16:25 Plt Count 239 K/mm3 (140-440) 04/01/17 16:25 Add Manual Diff Complete 04/01/17 16:25 Total Counted 100 04/01/17 16:25 Seg Neuts % (Manual) 65.0 % (40.0-70.0) 04/01/17 16:25 Band Neutrophils % 0 % 04/01/17 16:25 Lymphocytes % (Manual) 27.0 % (13.4-35.0) 04/01/17 16:25 Reactive Lymphs % (Man) 0 % 04/01/17 16:25 Monocytes % (Manual) 6.0 % (0.0-7.3) 04/01/17 16:25 Eosinophils % (Manual) 2.0 % (0.0-4.3) 04/01/17 16:25 Basophils % (Manual) 0 % (0.0-1.8) 04/01/17 16:25 Metamyelocytes % 0 % 04/01/17 16:25 Myelocytes % 0 % 04/01/17 16:25 Promyelocytes % 0 % 04/01/17 16:25 Blast Cells % 0 % 04/01/17 16:25 Seg Neutrophils # Man 0.0 K/mm3 (1.8-7.7) L 04/01/17 16:25 Band Neutrophils # 0.0 K/mm3 04/01/17 16:25 Lymphocytes # (Manual) 0.0 K/mm3 (1.2-5.4) L 04/01/17 16:25 Abs React Lymphs (Man) 0.0 K/mm3 04/01/17 16:25 Monocytes # (Manual) 0.0 K/mm3 (0.0-0.8) 04/01/17 16:25 Eosinophils # (Manual) 0.0 K/mm3 (0.0-0.4) 04/01/17 16:25 Basophils # (Manual) 0.0 K/mm3 (0.0-0.1) 04/01/17 16:25 Metamyelocytes # 0.0 K/mm3 04/01/17 16:25 Myelocytes # 0.0 K/mm3 04/01/17 16:25 Promyelocytes # 0.0 K/mm3 04/01/17 16:25 Blast Cells # 0.0 K/mm3 04/01/17 16:25 Platelet Estimate Consistent w auto 04/01/17 16:25 Microcytosis 1+ 04/01/17 16:25 Target Cells 1+ 04/01/17 16:25 Hem Pathologist Commnt No 04/01/17 16:25 PT 13.3 Sec. (12.2-14.9) 04/01/17 17:57 INR 0.96 (0.87-1.13) 04/01/17 17:57 APTT 34.1 Sec. (24.2-36.6) 04/01/17 17:57 Sodium 143 mmol/L (137-145) 04/01/17 16:25 Potassium 4.1 mmol/L (3.6-5.0) 04/01/17 16:25 Chloride 103.3 mmol/L (98-107) 04/01/17 16:25 Carbon Dioxide 26 mmol/L (22-30) 04/01/17 16:25 Anion Gap 18 mmol/L 04/01/17 16:25 BUN 13 mg/dL (7-17) 04/01/17 16:25 Creatinine 0.7 mg/dL (0.7-1.2) 04/01/17 16:25 Estimated GFR > 60 ml/min 04/01/17 16:25 BUN/Creatinine Ratio 19 % 04/01/17 16:25 Glucose 107 mg/dL (65-100) H 04/01/17 16:25 POC Glucose 141 (70-105) H 04/05/17 17:12 Calcium 9.0 mg/dL (8.4-10.2) 04/01/17 16:25 Total Bilirubin 0.40 mg/dL (0.1-1.2) 04/01/17 16:25 Direct Bilirubin < 0.2 mg/dL (0-0.2) 04/01/17 16:25 Indirect Bilirubin 0.2 mg/dL 04/01/17 16:25 AST 20 units/L (5-40) 04/01/17 16:25 ALT 14 units/L (7-56) 04/01/17 16:25 Alkaline Phosphatase 55 units/L (35-129) 04/01/17 16:25 Ammonia 20.0 umol/L (25-60) L 04/01/17 17:44 Total Creatine Kinase 54 units/L (30-135) 04/01/17 16:25 CK-MB (CK-2) < 1.0 ng/mL (0.0-4.0) 04/01/17 16:25 CK-MB (CK-2) Rel Index 1.8 (0-4) 04/01/17 16:25 Troponin T < 0.010 ng/mL (0.00-0.029) 04/01/17 16:25 Total Protein 6.6 g/dL (6.3-8.2) 04/01/17 16:25 Albumin 4.0 g/dL (3.9-5) 04/01/17 16:25 Albumin/Globulin Ratio 1.5 % 04/01/17 16:25 Triglycerides 102 mg/dL (2-149) 04/02/17 05:04 Cholesterol 132 mg/dL (50-199) 04/02/17 05:04 LDL Cholesterol Direct 60 mg/dL (50-130) 04/02/17 05:04 HDL Cholesterol 52 mg/dL (40-59) 04/02/17 05:04 Cholesterol/HDL Ratio 2.53 % 04/02/17 05:04 Urine Color Yellow (Yellow) 04/01/17 Unknown Urine Turbidity Clear (Clear) 04/01/17 Unknown Urine pH 6.0 (5.0-7.0) 04/01/17 Unknown Ur Specific [place] 1.007 (1.003-1.030) 04/01/17 Unknown Urine Protein <15 mg/dl mg/dL (Negative) 04/01/17 Unknown Urine Glucose (UA) >=500 mg/dL (Negative) 04/01/17 Unknown Urine Ketones Neg mg/dL (Negative) 04/01/17 Unknown Urine Blood Neg (Negative) 04/01/17 Unknown Urine Nitrite Neg (Negative) 04/01/17 Unknown Urine Bilirubin Neg (Negative) 04/01/17 Unknown Urine Urobilinogen < 2.0 mg/dL (<2.0) 04/01/17 Unknown Ur Leukocyte Esterase Tr (Negative) 04/01/17 Unknown Urine WBC (Auto) 4.0 /HPF (0.0-6.0) 04/01/17 Unknown Urine RBC (Auto) 3.0 /HPF (0.0-6.0) 04/01/17 Unknown U Epithel Cells (Auto) < 1.0 /HPF (0-13.0) 04/01/17 Unknown Urine Bacteria (Auto) 1+ /HPF (Negative) 04/01/17 Unknown Urine Opiates Screen Presumptive negative 04/01/17 Unknown Urine Methadone Screen Presumptive negative 04/01/17 Unknown Ur Barbiturates Screen Presumptive negative 04/01/17 Unknown Ur Phencyclidine Scrn Presumptive negative 04/01/17 Unknown Ur Amphetamines Screen Presumptive negative 04/01/17 Unknown U Benzodiazepines Scrn Presumptive negative 04/01/17 Unknown Urine Cocaine Screen Presumptive negative 04/01/17 Unknown U Marijuana (THC) Screen Presumptive negative 04/01/17 Unknown Drugs of Abuse Note Disclamer 04/01/17 Unknown Plasma/Serum Alcohol < 0.01 gm% (0-0.07) 04/01/17 17:44
[2017-04-07] MEDS: ZOCOR PO SCH (22:11)
[2017-04-08] MEDS: ASPIRIN PO SCH (10:29)
--- NOTE | 2017-04-08 14:30 | Progress Note ---
Assessment and Plan Assessment and plan: 61 yo female with psychiatric disorder, brought from [facility] under 1013, with DM and HPL, who developed change in mental status and found to be hypoglycemic with a blood sugar of 36 1. Acute metabolic encephalopathy Secondary to hypoglycemia which now has resolved Other etiologies ruled out - infection, uremia, hepatic cephalopathy, drug use Mental status improved, likely back to baseline now 2. Diabetes with hypoglycemia Was on linagliptin/metformin at home; now discontinued Received D5W initially Now on regular po intake, no ivf BS consistently in 100-150s 3. Hyperlipidemia Continue statin 4. Psychiatric disorder Admitted at [facility] On 1013 Psychiatry following Plan to return there 5. DVT prophylaxis 6. Dispo Medically cleared to return to psychiatric facility; oral antidiabetic medication discontinued History Interval history: doing well, no issues, awaiting transfer to inpatient psych Hospitalist Physical - Constitutional Vitals: Temp Pulse Resp BP Pulse Ox 98.3 F 68 20 124/60 100 04/08/17 08:03 04/08/17 08:03 04/08/17 08:03 04/08/17 08:03 04/08/17 08:03 General appearance: Present: no acute distress - EENT Eyes: Present: PERRL, EOM intact - Neck Neck: Present: supple, normal ROM. Absent: masses or JVD - Respiratory Respiratory effort: normal Respiratory: bilateral: CTA, negative: rhonchi, wheezing - Cardiovascular Rhythm: regular Heart Sounds: Present: S1 & S2. Absent: systolic murmur - Extremities Extremities: no ischemia - Abdominal General gastrointestinal: soft, non-tender, non-distended, normal bowel sounds - Psychiatric Psychiatric: cooperative - Neurologic Neurologic: CNII-XII intact, no focal deficits Results - Labs CBC & Chem 7: 04/01/17 16:25 04/01/17 16:25 Labs: Laboratory Last Values WBC 8.6 K/mm3 (4.5-11.0) 04/01/17 16:25 RBC 5.09 M/mm3 (3.65-5.03) H 04/01/17 16:25 Hgb 11.3 gm/dl (10.1-14.3) 04/01/17 16:25 Hct 33.9 % (30.3-42.9) 04/01/17 16:25 MCV 67 fl (79-97) L 04/01/17 16:25 MCH 22 pg (28-32) L 04/01/17 16:25 MCHC 33 % (30-34) 04/01/17 16:25 RDW 16.1 % (13.2-15.2) H 04/01/17 16:25 Plt Count 239 K/mm3 (140-440) 04/01/17 16:25 Add Manual Diff Complete 04/01/17 16:25 Total Counted 100 04/01/17 16:25 Seg Neuts % (Manual) 65.0 % (40.0-70.0) 04/01/17 16:25 Band Neutrophils % 0 % 04/01/17 16:25 Lymphocytes % (Manual) 27.0 % (13.4-35.0) 04/01/17 16:25 Reactive Lymphs % (Man) 0 % 04/01/17 16:25 Monocytes % (Manual) 6.0 % (0.0-7.3) 04/01/17 16:25 Eosinophils % (Manual) 2.0 % (0.0-4.3) 04/01/17 16:25 Basophils % (Manual) 0 % (0.0-1.8) 04/01/17 16:25 Metamyelocytes % 0 % 04/01/17 16:25 Myelocytes % 0 % 04/01/17 16:25 Promyelocytes % 0 % 04/01/17 16:25 Blast Cells % 0 % 04/01/17 16:25 Seg Neutrophils # Man 0.0 K/mm3 (1.8-7.7) L 04/01/17 16:25 Band Neutrophils # 0.0 K/mm3 04/01/17 16:25 Lymphocytes # (Manual) 0.0 K/mm3 (1.2-5.4) L 04/01/17 16:25 Abs React Lymphs (Man) 0.0 K/mm3 04/01/17 16:25 Monocytes # (Manual) 0.0 K/mm3 (0.0-0.8) 04/01/17 16:25 Eosinophils # (Manual) 0.0 K/mm3 (0.0-0.4) 04/01/17 16:25 Basophils # (Manual) 0.0 K/mm3 (0.0-0.1) 04/01/17 16:25 Metamyelocytes # 0.0 K/mm3 04/01/17 16:25 Myelocytes # 0.0 K/mm3 04/01/17 16:25 Promyelocytes # 0.0 K/mm3 04/01/17 16:25 Blast Cells # 0.0 K/mm3 04/01/17 16:25 Platelet Estimate Consistent w auto 04/01/17 16:25 Microcytosis 1+ 04/01/17 16:25 Target Cells 1+ 04/01/17 16:25 Hem Pathologist Commnt No 04/01/17 16:25 PT 13.3 Sec. (12.2-14.9) 04/01/17 17:57 INR 0.96 (0.87-1.13) 04/01/17 17:57 APTT 34.1 Sec. (24.2-36.6) 04/01/17 17:57 Sodium 143 mmol/L (137-145) 04/01/17 16:25 Potassium 4.1 mmol/L (3.6-5.0) 04/01/17 16:25 Chloride 103.3 mmol/L (98-107) 04/01/17 16:25 Carbon Dioxide 26 mmol/L (22-30) 04/01/17 16:25 Anion Gap 18 mmol/L 04/01/17 16:25 BUN 13 mg/dL (7-17) 04/01/17 16:25 Creatinine 0.7 mg/dL (0.7-1.2) 04/01/17 16:25 Estimated GFR > 60 ml/min 04/01/17 16:25 BUN/Creatinine Ratio 19 % 04/01/17 16:25 Glucose 107 mg/dL (65-100) H 04/01/17 16:25 POC Glucose 132 (70-105) H 04/08/17 11:59 Calcium 9.0 mg/dL (8.4-10.2) 04/01/17 16:25 Total Bilirubin 0.40 mg/dL (0.1-1.2) 04/01/17 16:25 Direct Bilirubin < 0.2 mg/dL (0-0.2) 04/01/17 16:25 Indirect Bilirubin 0.2 mg/dL 04/01/17 16:25 AST 20 units/L (5-40) 04/01/17 16:25 ALT 14 units/L (7-56) 04/01/17 16:25 Alkaline Phosphatase 55 units/L (35-129) 04/01/17 16:25 Ammonia 20.0 umol/L (25-60) L 04/01/17 17:44 Total Creatine Kinase 54 units/L (30-135) 04/01/17 16:25 CK-MB (CK-2) < 1.0 ng/mL (0.0-4.0) 04/01/17 16:25 CK-MB (CK-2) Rel Index 1.8 (0-4) 04/01/17 16:25 Troponin T < 0.010 ng/mL (0.00-0.029) 04/01/17 16:25 Total Protein 6.6 g/dL (6.3-8.2) 04/01/17 16:25 Albumin 4.0 g/dL (3.9-5) 04/01/17 16:25 Albumin/Globulin Ratio 1.5 % 04/01/17 16:25 Triglycerides 102 mg/dL (2-149) 04/02/17 05:04 Cholesterol 132 mg/dL (50-199) 04/02/17 05:04 LDL Cholesterol Direct 60 mg/dL (50-130) 04/02/17 05:04 HDL Cholesterol 52 mg/dL (40-59) 04/02/17 05:04 Cholesterol/HDL Ratio 2.53 % 04/02/17 05:04 Urine Color Yellow (Yellow) 04/01/17 Unknown Urine Turbidity Clear (Clear) 04/01/17 Unknown Urine pH 6.0 (5.0-7.0) 04/01/17 Unknown Ur Specific [place] 1.007 (1.003-1.030) 04/01/17 Unknown Urine Protein <15 mg/dl mg/dL (Negative) 04/01/17 Unknown Urine Glucose (UA) >=500 mg/dL (Negative) 04/01/17 Unknown Urine Ketones Neg mg/dL (Negative) 04/01/17 Unknown Urine Blood Neg (Negative) 04/01/17 Unknown Urine Nitrite Neg (Negative) 04/01/17 Unknown Urine Bilirubin Neg (Negative) 04/01/17 Unknown Urine Urobilinogen < 2.0 mg/dL (<2.0) 04/01/17 Unknown Ur Leukocyte Esterase Tr (Negative) 04/01/17 Unknown Urine WBC (Auto) 4.0 /HPF (0.0-6.0) 04/01/17 Unknown Urine RBC (Auto) 3.0 /HPF (0.0-6.0) 04/01/17 Unknown U Epithel Cells (Auto) < 1.0 /HPF (0-13.0) 04/01/17 Unknown Urine Bacteria (Auto) 1+ /HPF (Negative) 04/01/17 Unknown Urine Opiates Screen Presumptive negative 04/01/17 Unknown Urine Methadone Screen Presumptive negative 04/01/17 Unknown Ur Barbiturates Screen Presumptive negative 04/01/17 Unknown Ur Phencyclidine Scrn Presumptive negative 04/01/17 Unknown Ur Amphetamines Screen Presumptive negative 04/01/17 Unknown U Benzodiazepines Scrn Presumptive negative 04/01/17 Unknown Urine Cocaine Screen Presumptive negative 04/01/17 Unknown U Marijuana (THC) Screen Presumptive negative 04/01/17 Unknown Drugs of Abuse Note Disclamer 04/01/17 Unknown Plasma/Serum Alcohol < 0.01 gm% (0-0.07) 04/01/17 17:44
[2017-04-08] MEDS: ZOCOR PO SCH (21:28)
[2017-04-09] MEDS: ASPIRIN PO SCH (09:57)
--- NOTE | 2017-04-09 16:35 | Progress Note ---
Assessment and Plan Assessment and plan: 61 yo female with psychiatric disorder, brought from [facility] under 1013, with DM and HPL, who developed change in mental status and found to be hypoglycemic with a blood sugar of 36 1. Acute metabolic encephalopathy Secondary to hypoglycemia which now has resolved Other etiologies ruled out - infection, uremia, hepatic cephalopathy, drug use Mental status improved, likely back to baseline now 2. Diabetes with hypoglycemia Was on linagliptin/metformin at home; now discontinued Received D5W initially Now on regular po intake, no ivf BS consistently in 100-150s 3. Hyperlipidemia Continue statin 4. Psychiatric disorder Admitted at [facility] On 101 Psychiatry following Plan to return there 5. DVT prophylaxis 6. Dispo Medically cleared to return to psychiatric facility; oral antidiabetic medication discontinued History Interval history: doing well, no issues, awaiting transfer to inpatient psych Hospitalist Physical - Constitutional Vitals: Temp Pulse Resp BP Pulse Ox 98.8 F 72 18 108/56 99 04/09/17 15:04 04/09/17 15:04 04/09/17 15:04 04/09/17 15:04 04/09/17 15:04 General appearance: Present: no acute distress - Neck Neck: Present: supple. Absent: enlarged thyroid, masses or JVD - Respiratory Respiratory effort: normal Respiratory: bilateral: CTA, negative: rhonchi, wheezing - Cardiovascular Rhythm: regular Heart Sounds: Present: S1 & S2. Absent: systolic murmur - Extremities Extremities: no ischemia - Abdominal General gastrointestinal: soft, non-tender, non-distended, normal bowel sounds - Neurologic Neurologic: no focal deficits Results - Labs CBC & Chem 7: 04/01/17 16:25 04/01/17 16:25 Labs: Laboratory Last Values WBC 8.6 K/mm3 (4.5-11.0) 04/01/17 16:25 RBC 5.09 M/mm3 (3.65-5.03) H 04/01/17 16:25 Hgb 11.3 gm/dl (10.1-14.3) 04/01/17 16:25 Hct 33.9 % (30.3-42.9) 04/01/17 16:25 MCV 67 fl (79-97) L 04/01/17 16:25 MCH 22 pg (28-32) L 04/01/17 16:25 MCHC 33 % (30-34) 04/01/17 16:25 RDW 16.1 % (13.2-15.2) H 04/01/17 16:25 Plt Count 239 K/mm3 (140-440) 04/01/17 16:25 Add Manual Diff Complete 04/01/17 16:25 Total Counted 100 04/01/17 16:25 Seg Neuts % (Manual) 65.0 % (40.0-70.0) 04/01/17 16:25 Band Neutrophils % 0 % 04/01/17 16:25 Lymphocytes % (Manual) 27.0 % (13.4-35.0) 04/01/17 16:25 Reactive Lymphs % (Man) 0 % 04/01/17 16:25 Monocytes % (Manual) 6.0 % (0.0-7.3) 04/01/17 16:25 Eosinophils % (Manual) 2.0 % (0.0-4.3) 04/01/17 16:25 Basophils % (Manual) 0 % (0.0-1.8) 04/01/17 16:25 Metamyelocytes % 0 % 04/01/17 16:25 Myelocytes % 0 % 04/01/17 16:25 Promyelocytes % 0 % 04/01/17 16:25 Blast Cells % 0 % 04/01/17 16:25 Seg Neutrophils # Man 0.0 K/mm3 (1.8-7.7) L 04/01/17 16:25 Band Neutrophils # 0.0 K/mm3 04/01/17 16:25 Lymphocytes # (Manual) 0.0 K/mm3 (1.2-5.4) L 04/01/17 16:25 Abs React Lymphs (Man) 0.0 K/mm3 04/01/17 16:25 Monocytes # (Manual) 0.0 K/mm3 (0.0-0.8) 04/01/17 16:25 Eosinophils # (Manual) 0.0 K/mm3 (0.0-0.4) 04/01/17 16:25 Basophils # (Manual) 0.0 K/mm3 (0.0-0.1) 04/01/17 16:25 Metamyelocytes # 0.0 K/mm3 04/01/17 16:25 Myelocytes # 0.0 K/mm3 04/01/17 16:25 Promyelocytes # 0.0 K/mm3 04/01/17 16:25 Blast Cells # 0.0 K/mm3 04/01/17 16:25 Platelet Estimate Consistent w auto 04/01/17 16:25 Microcytosis 1+ 04/01/17 16:25 Target Cells 1+ 04/01/17 16:25 Hem Pathologist Commnt No 04/01/17 16:25 PT 13.3 Sec. (12.2-14.9) 04/01/17 17:57 INR 0.96 (0.87-1.13) 04/01/17 17:57 APTT 34.1 Sec. (24.2-36.6) 04/01/17 17:57 Sodium 143 mmol/L (137-145) 04/01/17 16:25 Potassium 4.1 mmol/L (3.6-5.0) 04/01/17 16:25 Chloride 103.3 mmol/L (98-107) 04/01/17 16:25 Carbon Dioxide 26 mmol/L (22-30) 04/01/17 16:25 Anion Gap 18 mmol/L 04/01/17 16:25 BUN 13 mg/dL (7-17) 04/01/17 16:25 Creatinine 0.7 mg/dL (0.7-1.2) 04/01/17 16:25 Estimated GFR > 60 ml/min 04/01/17 16:25 BUN/Creatinine Ratio 19 % 04/01/17 16:25 Glucose 107 mg/dL (65-100) H 04/01/17 16:25 POC Glucose 126 (70-105) H 04/09/17 12:23 Calcium 9.0 mg/dL (8.4-10.2) 04/01/17 16:25 Total Bilirubin 0.40 mg/dL (0.1-1.2) 04/01/17 16:25 Direct Bilirubin < 0.2 mg/dL (0-0.2) 04/01/17 16:25 Indirect Bilirubin 0.2 mg/dL 04/01/17 16:25 AST 20 units/L (5-40) 04/01/17 16:25 ALT 14 units/L (7-56) 04/01/17 16:25 Alkaline Phosphatase 55 units/L (35-129) 04/01/17 16:25 Ammonia 20.0 umol/L (25-60) L 04/01/17 17:44 Total Creatine Kinase 54 units/L (30-135) 04/01/17 16:25 CK-MB (CK-2) < 1.0 ng/mL (0.0-4.0) 04/01/17 16:25 CK-MB (CK-2) Rel Index 1.8 (0-4) 04/01/17 16:25 Troponin T < 0.010 ng/mL (0.00-0.029) 04/01/17 16:25 Total Protein 6.6 g/dL (6.3-8.2) 04/01/17 16:25 Albumin 4.0 g/dL (3.9-5) 04/01/17 16:25 Albumin/Globulin Ratio 1.5 % 04/01/17 16:25 Triglycerides 102 mg/dL (2-149) 04/02/17 05:04 Cholesterol 132 mg/dL (50-199) 04/02/17 05:04 LDL Cholesterol Direct 60 mg/dL (50-130) 04/02/17 05:04 HDL Cholesterol 52 mg/dL (40-59) 04/02/17 05:04 Cholesterol/HDL Ratio 2.53 % 04/02/17 05:04 Urine Color Yellow (Yellow) 04/01/17 Unknown Urine Turbidity Clear (Clear) 04/01/17 Unknown Urine pH 6.0 (5.0-7.0) 04/01/17 Unknown Ur Specific [place] 1.007 (1.003-1.030) 04/01/17 Unknown Urine Protein <15 mg/dl mg/dL (Negative) 04/01/17 Unknown Urine Glucose (UA) >=500 mg/dL (Negative) 04/01/17 Unknown Urine Ketones Neg mg/dL (Negative) 04/01/17 Unknown Urine Blood Neg (Negative) 04/01/17 Unknown Urine Nitrite Neg (Negative) 04/01/17 Unknown Urine Bilirubin Neg (Negative) 04/01/17 Unknown Urine Urobilinogen < 2.0 mg/dL (<2.0) 04/01/17 Unknown Ur Leukocyte Esterase Tr (Negative) 04/01/17 Unknown Urine WBC (Auto) 4.0 /HPF (0.0-6.0) 04/01/17 Unknown Urine RBC (Auto) 3.0 /HPF (0.0-6.0) 04/01/17 Unknown U Epithel Cells (Auto) < 1.0 /HPF (0-13.0) 04/01/17 Unknown Urine Bacteria (Auto) 1+ /HPF (Negative) 04/01/17 Unknown Urine Opiates Screen Presumptive negative 04/01/17 Unknown Urine Methadone Screen Presumptive negative 04/01/17 Unknown Ur Barbiturates Screen Presumptive negative 04/01/17 Unknown Ur Phencyclidine Scrn Presumptive negative 04/01/17 Unknown Ur Amphetamines Screen Presumptive negative 04/01/17 Unknown U Benzodiazepines Scrn Presumptive negative 04/01/17 Unknown Urine Cocaine Screen Presumptive negative 04/01/17 Unknown U Marijuana (THC) Screen Presumptive negative 04/01/17 Unknown Drugs of Abuse Note Disclamer 04/01/17 Unknown Plasma/Serum Alcohol < 0.01 gm% (0-0.07) 04/01/17 17:44
--- NOTE | 2017-04-09 19:36 | Progress Note ---
Subjective - Reason for Consult Consult date: 04/09/17 Reason for consult: psychiatric follow up - Chief Complaint Chief complaint: I attempted to interview the patient today, but the interview was limited due to language barrier. She made eye contact. She reported she has been eating. Per review of medical record, patient had hypoglycemia which led to the altered mental status, it appears that this is now resolved. Yesterday, it was recommended to refer her to [place] now that the patient's altered mental status has resolved. Mental Status Exam - Vital signs Last Vital Signs Temp 98.8 F 04/09/17 15:04 Pulse 72 04/09/17 15:04 Resp 18 04/09/17 15:04 BP 108/56 04/09/17 15:04 Pulse Ox 99 04/09/17 15:04 - Exam Narrative exam: she is alert. unable to obtain additional information Orientation: person (she gave her country of ) Assessment and Plan Yesterday, it was recommended to refer her to [place] now that the patient' s altered mental status has resolved.
[2017-04-09] MEDS: ZOCOR PO SCH (22:40)
[2017-04-10] MEDS: ASPIRIN PO SCH (10:39)
--- NOTE | 2017-04-10 16:37 | Progress Note ---
Subjective - Reason for Consult Consult date: 04/10/17 Reason for consult: Psychiatry Follow-up - Chief Complaint Chief complaint: "Hello" The patient is a 61-year-old female presenting with a chief complaint of altered mental status. Per EMS patient was sent from [place] because of right facial drooping. Today patient is calm and cooperative during the assessment. The brand advocate language line (tying in machine operator number [id number]) was used. She denies SI/ HI's and AVH's. She stated not having any family locally. Per notes, patient has 2 caregivers. Attempts was made to contact caregivers with no success. Per the staff, patient have been completing her ADL's and eating 100% of her meals. Mental Status Exam - Vital signs Last Vital Signs Temp 99.2 F 04/10/17 16:05 Pulse 80 04/10/17 16:05 Resp 16 04/10/17 16:05 BP 122/67 04/10/17 16:05 Pulse Ox 98 04/10/17 16:05 - Exam Narrative exam: MSE: Appearance: calm, cooperative Behavior: regular eye contact Speech: regular rate and tone Mood: "okay" Affect: congruent to mood Thought Process: intact Thought Content: denies SI/HI's and AVH's Motor Activity: ambulatory Cognition: A/O x3 Insight: fair Judgment: fair Assessment and Plan Impression: Medical: Encephalopathy. Historical Dx: Possibly Schizophrenia. Today patient was calm and cooperative during the assessment. Instrumental Music Teacher line was used ([id number]). Patient denies SI/HI's. Patient is no threat to self or others. Recommendation/Plan: Rescind 1013. Patient is stable for appropriate placement by foster care social worker. Once placement has been identified and approved, outpatient psy services will be provided to patient before discharge.
--- NOTE | 2017-04-10 18:15 | Progress Note ---
Assessment and Plan Assessment and plan: 61 yo female with psychiatric disorder, brought from [facility] under 1013, with DM and HPL, who developed change in mental status and found to be hypoglycemic with a blood sugar of 36 1. Acute metabolic encephalopathy Secondary to hypoglycemia which now has resolved Other etiologies ruled out - infection, uremia, hepatic cephalopathy, drug use Mental status improved, likely back to baseline now 2. Diabetes with hypoglycemia Was on linagliptin/metformin at home; now discontinued Received D5W initially Now on regular po intake, no ivf BS consistently in 100-150s 3. Hyperlipidemia Continue statin 4. Psychiatric disorder Admitted at [facility] On 1013 Psychiatry following Plan to return there 5. DVT prophylaxis 6. Dispo Medically cleared to return to psychiatric facility; oral antidiabetic medication discontinued History Interval history: doing well, no issues, awaiting placement Hospitalist Physical - Constitutional Vitals: Temp Pulse Resp BP Pulse Ox 99.2 F 80 16 122/67 98 04/10/17 16:05 04/10/17 16:05 04/10/17 16:05 04/10/17 16:05 04/10/17 16:05 General appearance: Present: no acute distress - EENT Eyes: Present: PERRL, EOM intact - Neck Neck: Present: supple, normal ROM. Absent: masses or JVD - Respiratory Respiratory effort: normal Respiratory: bilateral: CTA, negative: rhonchi, wheezing - Cardiovascular Rhythm: regular Heart Sounds: Present: S1 & S2. Absent: systolic murmur - Extremities Extremities: no ischemia - Abdominal General gastrointestinal: soft, non-tender, non-distended, normal bowel sounds - Psychiatric Psychiatric: other (calm) - Neurologic Neurologic: CNII-XII intact, no focal deficits Results - Labs CBC & Chem 7: 04/01/17 16:25 04/01/17 16:25 Labs: Laboratory Last Values WBC 8.6 K/mm3 (4.5-11.0) 04/01/17 16:25 RBC 5.09 M/mm3 (3.65-5.03) H 04/01/17 16:25 Hgb 11.3 gm/dl (10.1-14.3) 04/01/17 16:25 Hct 33.9 % (30.3-42.9) 04/01/17 16:25 MCV 67 fl (79-97) L 04/01/17 16:25 MCH 22 pg (28-32) L 04/01/17 16:25 MCHC 33 % (30-34) 04/01/17 16:25 RDW 16.1 % (13.2-15.2) H 04/01/17 16:25 Plt Count 239 K/mm3 (140-440) 04/01/17 16:25 Add Manual Diff Complete 04/01/17 16:25 Total Counted 100 04/01/17 16:25 Seg Neuts % (Manual) 65.0 % (40.0-70.0) 04/01/17 16:25 Band Neutrophils % 0 % 04/01/17 16:25 Lymphocytes % (Manual) 27.0 % (13.4-35.0) 04/01/17 16:25 Reactive Lymphs % (Man) 0 % 04/01/17 16:25 Monocytes % (Manual) 6.0 % (0.0-7.3) 04/01/17 16:25 Eosinophils % (Manual) 2.0 % (0.0-4.3) 04/01/17 16:25 Basophils % (Manual) 0 % (0.0-1.8) 04/01/17 16:25 Metamyelocytes % 0 % 04/01/17 16:25 Myelocytes % 0 % 04/01/17 16:25 Promyelocytes % 0 % 04/01/17 16:25 Blast Cells % 0 % 04/01/17 16:25 Seg Neutrophils # Man 0.0 K/mm3 (1.8-7.7) L 04/01/17 16:25 Band Neutrophils # 0.0 K/mm3 04/01/17 16:25 Lymphocytes # (Manual) 0.0 K/mm3 (1.2-5.4) L 04/01/17 16:25 Abs React Lymphs (Man) 0.0 K/mm3 04/01/17 16:25 Monocytes # (Manual) 0.0 K/mm3 (0.0-0.8) 04/01/17 16:25 Eosinophils # (Manual) 0.0 K/mm3 (0.0-0.4) 04/01/17 16:25 Basophils # (Manual) 0.0 K/mm3 (0.0-0.1) 04/01/17 16:25 Metamyelocytes # 0.0 K/mm3 04/01/17 16:25 Myelocytes # 0.0 K/mm3 04/01/17 16:25 Promyelocytes # 0.0 K/mm3 04/01/17 16:25 Blast Cells # 0.0 K/mm3 04/01/17 16:25 Platelet Estimate Consistent w auto 04/01/17 16:25 Microcytosis 1+ 04/01/17 16:25 Target Cells 1+ 04/01/17 16:25 Hem Pathologist Commnt No 04/01/17 16:25 PT 13.3 Sec. (12.2-14.9) 04/01/17 17:57 INR 0.96 (0.87-1.13) 04/01/17 17:57 APTT 34.1 Sec. (24.2-36.6) 04/01/17 17:57 Sodium 143 mmol/L (137-145) 04/01/17 16:25 Potassium 4.1 mmol/L (3.6-5.0) 04/01/17 16:25 Chloride 103.3 mmol/L (98-107) 04/01/17 16:25 Carbon Dioxide 26 mmol/L (22-30) 04/01/17 16:25 Anion Gap 18 mmol/L 04/01/17 16:25 BUN 13 mg/dL (7-17) 04/01/17 16:25 Creatinine 0.7 mg/dL (0.7-1.2) 04/01/17 16:25 Estimated GFR > 60 ml/min 04/01/17 16:25 BUN/Creatinine Ratio 19 % 04/01/17 16:25 Glucose 107 mg/dL (65-100) H 04/01/17 16:25 POC Glucose 107 (70-105) H 04/10/17 06:39 Calcium 9.0 mg/dL (8.4-10.2) 04/01/17 16:25 Total Bilirubin 0.40 mg/dL (0.1-1.2) 04/01/17 16:25 Direct Bilirubin < 0.2 mg/dL (0-0.2) 04/01/17 16:25 Indirect Bilirubin 0.2 mg/dL 04/01/17 16:25 AST 20 units/L (5-40) 04/01/17 16:25 ALT 14 units/L (7-56) 04/01/17 16:25 Alkaline Phosphatase 55 units/L (35-129) 04/01/17 16:25 Ammonia 20.0 umol/L (25-60) L 04/01/17 17:44 Total Creatine Kinase 54 units/L (30-135) 04/01/17 16:25 CK-MB (CK-2) < 1.0 ng/mL (0.0-4.0) 04/01/17 16:25 CK-MB (CK-2) Rel Index 1.8 (0-4) 04/01/17 16:25 Troponin T < 0.010 ng/mL (0.00-0.029) 04/01/17 16:25 Total Protein 6.6 g/dL (6.3-8.2) 04/01/17 16:25 Albumin 4.0 g/dL (3.9-5) 04/01/17 16:25 Albumin/Globulin Ratio 1.5 % 04/01/17 16:25 Triglycerides 102 mg/dL (2-149) 04/02/17 05:04 Cholesterol 132 mg/dL (50-199) 04/02/17 05:04 LDL Cholesterol Direct 60 mg/dL (50-130) 04/02/17 05:04 HDL Cholesterol 52 mg/dL (40-59) 04/02/17 05:04 Cholesterol/HDL Ratio 2.53 % 04/02/17 05:04 Urine Color Yellow (Yellow) 04/01/17 Unknown Urine Turbidity Clear (Clear) 04/01/17 Unknown Urine pH 6.0 (5.0-7.0) 04/01/17 Unknown Ur Specific [place] 1.007 (1.003-1.030) 04/01/17 Unknown Urine Protein <15 mg/dl mg/dL (Negative) 04/01/17 Unknown Urine Glucose (UA) >=500 mg/dL (Negative) 04/01/17 Unknown Urine Ketones Neg mg/dL (Negative) 04/01/17 Unknown Urine Blood Neg (Negative) 04/01/17 Unknown Urine Nitrite Neg (Negative) 04/01/17 Unknown Urine Bilirubin Neg (Negative) 04/01/17 Unknown Urine Urobilinogen < 2.0 mg/dL (<2.0) 04/01/17 Unknown Ur Leukocyte Esterase Tr (Negative) 04/01/17 Unknown Urine WBC (Auto) 4.0 /HPF (0.0-6.0) 04/01/17 Unknown Urine RBC (Auto) 3.0 /HPF (0.0-6.0) 04/01/17 Unknown U Epithel Cells (Auto) < 1.0 /HPF (0-13.0) 04/01/17 Unknown Urine Bacteria (Auto) 1+ /HPF (Negative) 04/01/17 Unknown Urine Opiates Screen Presumptive negative 04/01/17 Unknown Urine Methadone Screen Presumptive negative 04/01/17 Unknown Ur Barbiturates Screen Presumptive negative 04/01/17 Unknown Ur Phencyclidine Scrn Presumptive negative 04/01/17 Unknown Ur Amphetamines Screen Presumptive negative 04/01/17 Unknown U Benzodiazepines Scrn Presumptive negative 04/01/17 Unknown Urine Cocaine Screen Presumptive negative 04/01/17 Unknown U Marijuana (THC) Screen Presumptive negative 04/01/17 Unknown Drugs of Abuse Note Disclamer 04/01/17 Unknown Plasma/Serum Alcohol < 0.01 gm% (0-0.07) 04/01/17 17:44
[2017-04-10] MEDS: ZOCOR PO SCH (21:21)
[2017-04-11] MEDS: ASPIRIN PO SCH (09:36)
--- NOTE | 2017-04-11 16:32 | Progress Note ---
Assessment and Plan Assessment and plan: 61 yo female with psychiatric disorder, brought from [facility] under 1013, with DM and HPL, who developed change in mental status and found to be hypoglycemic with a blood sugar of 36 1. Acute metabolic encephalopathy Secondary to hypoglycemia which now has resolved Other etiologies ruled out - infection, uremia, hepatic cephalopathy, drug use Mental status improved, likely back to baseline now 2. Diabetes with hypoglycemia Was on linagliptin/metformin at home; now discontinued Received D5W initially Now on regular po intake, no ivf BS consistently in 100-150s 3. Hyperlipidemia Continue statin 4. Psychiatric disorder Admitted at [facility] and plan was to return there, but psychiatry rescinded 1013 5. DVT prophylaxis 6. Dispo Medically cleared to return to psychiatric facility a week ago, on 04/05/17, but psychiatry now recommends regular placement History Interval history: doing well, no issues, awaiting placement Hospitalist Physical - Constitutional Vitals: Temp Pulse Resp BP Pulse Ox 98.1 F 69 18 109/58 99 04/11/17 08:04 04/11/17 08:04 04/11/17 08:04 04/11/17 08:04 04/11/17 08:04 General appearance: Present: no acute distress - EENT Eyes: Present: PERRL, EOM intact - Neck Neck: Present: supple, normal ROM. Absent: masses or JVD - Respiratory Respiratory effort: normal Respiratory: bilateral: CTA, negative: rhonchi, wheezing - Cardiovascular Rhythm: regular Heart Sounds: Present: S1 & S2. Absent: systolic murmur - Extremities Extremities: no ischemia - Abdominal General gastrointestinal: soft, non-tender, non-distended, normal bowel sounds - Neurologic Neurologic: no focal deficits Results - Labs CBC & Chem 7: 04/01/17 16:25 04/01/17 16:25 Labs: Laboratory Last Values WBC 8.6 K/mm3 (4.5-11.0) 04/01/17 16:25 RBC 5.09 M/mm3 (3.65-5.03) H 04/01/17 16:25 Hgb 11.3 gm/dl (10.1-14.3) 04/01/17 16:25 Hct 33.9 % (30.3-42.9) 04/01/17 16:25 MCV 67 fl (79-97) L 04/01/17 16:25 MCH 22 pg (28-32) L 04/01/17 16:25 MCHC 33 % (30-34) 04/01/17 16:25 RDW 16.1 % (13.2-15.2) H 04/01/17 16:25 Plt Count 239 K/mm3 (140-440) 04/01/17 16:25 Add Manual Diff Complete 04/01/17 16:25 Total Counted 100 04/01/17 16:25 Seg Neuts % (Manual) 65.0 % (40.0-70.0) 04/01/17 16:25 Band Neutrophils % 0 % 04/01/17 16:25 Lymphocytes % (Manual) 27.0 % (13.4-35.0) 04/01/17 16:25 Reactive Lymphs % (Man) 0 % 04/01/17 16:25 Monocytes % (Manual) 6.0 % (0.0-7.3) 04/01/17 16:25 Eosinophils % (Manual) 2.0 % (0.0-4.3) 04/01/17 16:25 Basophils % (Manual) 0 % (0.0-1.8) 04/01/17 16:25 Metamyelocytes % 0 % 04/01/17 16:25 Myelocytes % 0 % 04/01/17 16:25 Promyelocytes % 0 % 04/01/17 16:25 Blast Cells % 0 % 04/01/17 16:25 Seg Neutrophils # Man 0.0 K/mm3 (1.8-7.7) L 04/01/17 16:25 Band Neutrophils # 0.0 K/mm3 04/01/17 16:25 Lymphocytes # (Manual) 0.0 K/mm3 (1.2-5.4) L 04/01/17 16:25 Abs React Lymphs (Man) 0.0 K/mm3 04/01/17 16:25 Monocytes # (Manual) 0.0 K/mm3 (0.0-0.8) 04/01/17 16:25 Eosinophils # (Manual) 0.0 K/mm3 (0.0-0.4) 04/01/17 16:25 Basophils # (Manual) 0.0 K/mm3 (0.0-0.1) 04/01/17 16:25 Metamyelocytes # 0.0 K/mm3 04/01/17 16:25 Myelocytes # 0.0 K/mm3 04/01/17 16:25 Promyelocytes # 0.0 K/mm3 04/01/17 16:25 Blast Cells # 0.0 K/mm3 04/01/17 16:25 Platelet Estimate Consistent w auto 04/01/17 16:25 Microcytosis 1+ 04/01/17 16:25 Target Cells 1+ 04/01/17 16:25 Hem Pathologist Commnt No 04/01/17 16:25 PT 13.3 Sec. (12.2-14.9) 04/01/17 17:57 INR 0.96 (0.87-1.13) 04/01/17 17:57 APTT 34.1 Sec. (24.2-36.6) 04/01/17 17:57 Sodium 143 mmol/L (137-145) 04/01/17 16:25 Potassium 4.1 mmol/L (3.6-5.0) 04/01/17 16:25 Chloride 103.3 mmol/L (98-107) 04/01/17 16:25 Carbon Dioxide 26 mmol/L (22-30) 04/01/17 16:25 Anion Gap 18 mmol/L 04/01/17 16:25 BUN 13 mg/dL (7-17) 04/01/17 16:25 Creatinine 0.7 mg/dL (0.7-1.2) 04/01/17 16:25 Estimated GFR > 60 ml/min 04/01/17 16:25 BUN/Creatinine Ratio 19 % 04/01/17 16:25 Glucose 107 mg/dL (65-100) H 04/01/17 16:25 POC Glucose 107 (70-105) H 04/10/17 06:39 Calcium 9.0 mg/dL (8.4-10.2) 04/01/17 16:25 Total Bilirubin 0.40 mg/dL (0.1-1.2) 04/01/17 16:25 Direct Bilirubin < 0.2 mg/dL (0-0.2) 04/01/17 16:25 Indirect Bilirubin 0.2 mg/dL 04/01/17 16:25 AST 20 units/L (5-40) 04/01/17 16:25 ALT 14 units/L (7-56) 04/01/17 16:25 Alkaline Phosphatase 55 units/L (35-129) 04/01/17 16:25 Ammonia 20.0 umol/L (25-60) L 04/01/17 17:44 Total Creatine Kinase 54 units/L (30-135) 04/01/17 16:25 CK-MB (CK-2) < 1.0 ng/mL (0.0-4.0) 04/01/17 16:25 CK-MB (CK-2) Rel Index 1.8 (0-4) 04/01/17 16:25 Troponin T < 0.010 ng/mL (0.00-0.029) 04/01/17 16:25 Total Protein 6.6 g/dL (6.3-8.2) 04/01/17 16:25 Albumin 4.0 g/dL (3.9-5) 04/01/17 16:25 Albumin/Globulin Ratio 1.5 % 04/01/17 16:25 Triglycerides 102 mg/dL (2-149) 04/02/17 05:04 Cholesterol 132 mg/dL (50-199) 04/02/17 05:04 LDL Cholesterol Direct 60 mg/dL (50-130) 04/02/17 05:04 HDL Cholesterol 52 mg/dL (40-59) 04/02/17 05:04 Cholesterol/HDL Ratio 2.53 % 04/02/17 05:04 Urine Color Yellow (Yellow) 04/01/17 Unknown Urine Turbidity Clear (Clear) 04/01/17 Unknown Urine pH 6.0 (5.0-7.0) 04/01/17 Unknown Ur Specific [place] 1.007 (1.003-1.030) 04/01/17 Unknown Urine Protein <15 mg/dl mg/dL (Negative) 04/01/17 Unknown Urine Glucose (UA) >=500 mg/dL (Negative) 04/01/17 Unknown Urine Ketones Neg mg/dL (Negative) 04/01/17 Unknown Urine Blood Neg (Negative) 04/01/17 Unknown Urine Nitrite Neg (Negative) 04/01/17 Unknown Urine Bilirubin Neg (Negative) 04/01/17 Unknown Urine Urobilinogen < 2.0 mg/dL (<2.0) 04/01/17 Unknown Ur Leukocyte Esterase Tr (Negative) 04/01/17 Unknown Urine WBC (Auto) 4.0 /HPF (0.0-6.0) 04/01/17 Unknown Urine RBC (Auto) 3.0 /HPF (0.0-6.0) 04/01/17 Unknown U Epithel Cells (Auto) < 1.0 /HPF (0-13.0) 04/01/17 Unknown Urine Bacteria (Auto) 1+ /HPF (Negative) 04/01/17 Unknown Urine Opiates Screen Presumptive negative 04/01/17 Unknown Urine Methadone Screen Presumptive negative 04/01/17 Unknown Ur Barbiturates Screen Presumptive negative 04/01/17 Unknown Ur Phencyclidine Scrn Presumptive negative 04/01/17 Unknown Ur Amphetamines Screen Presumptive negative 04/01/17 Unknown U Benzodiazepines Scrn Presumptive negative 04/01/17 Unknown Urine Cocaine Screen Presumptive negative 04/01/17 Unknown U Marijuana (THC) Screen Presumptive negative 04/01/17 Unknown Drugs of Abuse Note Disclamer 04/01/17 Unknown Plasma/Serum Alcohol < 0.01 gm% (0-0.07) 04/01/17 17:44
[2017-04-11] MEDS: ZOCOR PO SCH (21:27)
[2017-04-12] MEDS: ASPIRIN PO SCH (09:58)
--- NOTE | 2017-04-12 10:25 | Discharge Summary ---
Providers - Providers Date of Admission: 04/01/17 19:29 Date of discharge: 04/12/17 Attending physician: DOMINIQUE CHANG CONSULTS: Psychiatry Primary care physician: CLAUDIA MORILLO MD Hospitalization Reason for admission: AMS Condition: Stable Pertinent studies: CT head MRI/A brain Hospital course: Patient is a 61 yo female with psychiatric disorder, brought from [facility] under 1013, with DM and HPL, who developed change in mental status and found to be hypoglycemic with a blood sugar of 36. Head CT and brain MRI/A did not revealed any acute changes. Other etiologies including infection have been ruled out. Her oral antidiabetics have been discontinued and BS in low 100s since then, so no medication necessary. Her acute metabolic encephalopathy resolved very quickly, but he was kept on 1013 by psychiatry as she was supposed to return to psychiatric facility; after 1 week psychiatry rescinded 1013 and patient is to be transferred to SNF. Discharge diagnoses: 1. Acute metabolic encephalopathy 2. Diabetes with hypoglycemia 3. Hyperlipidemia 4. Psychiatric disorder Disposition: [id number]/[id number] SNF [facility] Time spent for discharge: 35 min Core Measure Documentation - Palliative Care Palliative Care/ Comfort Measures: Not Applicable - Core Measures Any of the following diagnoses?: none Exam - Physical Exam Narrative exam: Seen and examined: - Constitutional Vitals: Temp Pulse Resp BP Pulse Ox 98.2 F 72 20 112/72 98 04/11/17 16:15 04/11/17 16:15 04/11/17 19:10 04/11/17 16:15 04/11/17 16:15 General appearance: Present: no acute distress - EENT Eyes: Present: PERRL, EOM intact - Neck Neck: Present: supple, normal ROM. Absent: masses or JVD - Respiratory Respiratory effort: normal Respiratory: bilateral: CTA, negative: rhonchi, wheezing - Cardiovascular Rhythm: regular Heart Sounds: Present: S1 & S2. Absent: systolic murmur - Extremities Extremities: no ischemia - Abdominal General gastrointestinal: Present: soft, non-tender, non-distended, normal bowel sounds - Musculoskeletal Musculoskeletal: strength equal bilaterally - Psychiatric Psychiatric: no intact judgment & insight - Neurologic Neurologic: CNII-XII intact, no focal deficits Plan Activity: advance as tolerated, fall precautions Diet: low cholesterol, low salt Follow up with: PRIMARY CARE, [Primary Care Provider] - 3-5 Days
[2017-04-12 15:32] VITALS: BP 109/57
== END 2017-04-12 18:00 | DRG 637 ==
LOC: ED 15:49 → 4A 19:29 → EDBD 19:29 → 4A 22:29 → 3A 04-05 22:58
PROVIDERS: ADMIT Internal Medicine; ATTEND Internal Medicine
DX: E11.649 Type 2 diabetes mellitus with hypoglycemia without coma (principal); G93.41 Metabolic encephalopathy; I10 Essential (primary) hypertension; F29 Unspecified psychosis not due to a substance or known physiological condition; E78.5 Hyperlipidemia, unspecified; Z79.82 Long term (current) use of aspirin; Z79.899 Other long term (current) drug therapy
CPT/HCPCS: 36415; 70450; 70544; 70551; 80048; 80061; 80074; 80307; 80320; 81001; 82140; 82550; 82553; 82962; 84484; 85007; 85025; 85610; 85730; 93306; 93880; 94760; 96374; 96376; G0480; G8978-GP; G8979-GP; G8996-GN; G8997-GN; G8998-GN